=== PATIENT | male | born 1940 | race Caucasian/White ===

== ENCOUNTER 2018-04-10 11:02 | Day surgery (SDC) | payer OTHER, SELFPAY ==
--- NOTE | 2018-04-10 06:41 | COLE_ITS ---
Date of service: 04/10/18 Time of Service: 12:09 Colonoscopy Report Date of procedure: 04/10/18 Pre-op diagnosis general: Hx of polyps Post-op diagnosis procedure note: other (Colorectal Polyps/ Diverticulosis) Procedure: Colonoscopy with polypectomy by cold snare and cold forceps Surgeon: Aleta Null Anesthesia proc note operative: MAC (Chance Holden,PHOTOCOMPOSING MACHINE OPERATOR/ ASA 2) Estimated blood loss (mL): 5 Pathology: other (Ascending colon polyps x3, rectal polyp x1) Complications: None Disposition: same day Indications: Mr. Mai is a pleasant 77 year old male who was seen in the office for a screening Colonoscopy. His last Colonoscopy was in 2012 and he had a serrated polyp removed. Risks, benefits and complications have been reviewed. Complications include but are not limited to bleeding, pain, perforation, missed small lesion/polyp, sore throat, aspiration and adverse reaction to the medications. Questions were entertained and answered to their satisfaction and they wished to proceed. No guarantees were given or implied. Prep: Miralax/Dulcolax Procedure Start Time: 12:09 Procedure End Time: 12:38 Retraction Time: 20 minutes Findings: Multiple polyps and diverticulosis Procedure Description: After informed consent was obtained the patient was taken to the procedure room and placed in a left decubitous position. Monitors were applied and a time out was done. The patients name, date of , procedure, allergies to medications and metal in their body was reviewed. The patient was then sedated. Once sedated and comfortable a rectal exam was done. External exam was normal. Internal exam revealed a normal sphincter tone and no palpable masses. The prostate felt smooth. The scope was then introduced and retro-flexed. No internal hemorrhoids were identified. The scope was then advanced to the cecum without difficulty. The TI and appendiceal orifice were identified. The prep was adequate. The scope was then slowly retracted over 20 minutes back into the rectum. Polyps were removed in the ascending colon x3 and in the rectum x1. Diverticulosis was noted in the transverse, descending and sigmoid colon. The scope was removed and the patient was woken up and taken back to Same day surgery in stable condition. The patient tolerated the procedure well and there were no immediate complications. Follow up: The patient should follow up in 3-5 years unless they develop changes in bowel habits or other new gastrointestinal complaints.
--- NOTE | 2018-04-10 06:41 | W.PM.DSUDISC ---
Discharge Plan Disposition Patient Disposition: HOME Condition: Good Discharge Details Reason For Visit: Hx of polyps Attending Provider: Aleta Null Primary Care Provider: Delon Jean Home Meds and New Rx's Prescriptions: Continued multivitamin tablet 1 tab PO DAILY RF: 0 metoprolol succinate 100 mg tablet extended release 24 hr 100 mg PO DAILY Qty: 3 RF: 0 simvastatin 40 mg tablet 40 mg PO QPM RF: 0 metformin 500 MG tablet 1,000 mg PO BID RF: 0 allopurinol 100 MG tablet 200 mg PO DAILY RF: 0 lisinopril 10 MG tablet 20 mg PO DAILY RF: 0 warfarin [Coumadin] 1 MG tablet 1 mg PO DAILY RF: 0 loratadine 10 MG tablet 10 mg PO DAILY RF: 0 Discontinued bisacodyl [Dulcolax (bisacodyl)] 5 mg tablet,delayed release (DR/EC) 5 mg PO ONCE Qty: 4 RF: 0 polyethylene glycol 3350 17 gram/dose powder 255 g PO ONCE Qty: 255 RF: 0 Discharge Instructions Instructions: Colonoscopy (DC), Colorectal Polyps (DC), Diverticulosis (DC) Additional Instructions: Findings: multiple polyps diverticulosis Follow up: 3-5 years Please call if you develop: fevers >101.5 Nausea or Vomiting Abdominal pain that is not transient DAY SURGERY UNIT POST COLONOSCOPY INSTRUCTIONS 1. Because there will be medication in your system for the next 24 hours, you may feel a little sleepy. Your coordination will be affected. Therefore: a. Do not drive or operate dangerous equipment for 24 hours. b. Do not drink alcohol beverages for 24 hours (not even beer). c. Plan to go home and rest for the day. 2. Generally there are no restrictions on your activity after a day or so has gone by, but you may feel a bit fatigued for a few days. 3 After you arrive home you may have a light meal and return to a normal diet as you can tolerate it without feeling sick to your stomach. 4. After surgery, you may feel pain or discomfort. This should be only transient, but if it persists please contact your doctor. 5. If there are any questions regarding the findings of your procedure, please feel free to contact your doctor. 6. If you are unable to contact your doctor with a problem, contact the hospital at [phone]. 7. Continue all your regular medications unless directed otherwise. I understand the above instructions and have no questions. Signature of Patient or Responsible Adult Escort Date/Time Name of Responsible Adult Escort Signature of Nurse Date/Time Activity:: Activity as Tolerated Diet:: high fiber diet Discharge Orders Discharge Orders: Discharge Order (Routine); Ordered 04/10/18 Ordered By: Aleta Null DS: Diagnosis Discharge Diagnosis (1) S/P colonoscopy: Status: Acute (2) Colorectal polyps: Status: Acute
[2018-04-10 11:17] VITALS: BP 143/91; PULSE 79; RESP 16; TEMP 36.2; O2SAT 100
[2018-04-10 11:37] LABS: INR 1.2 (0.9-1.1)
[2018-04-10] MEDS: Lactated Ringers 1,000 ML 80 ML IV (11:49)
--- NOTE | 2018-04-10 12:23 | BOWEL_PTH ---
PATIENT: Mauro Tay LOC: GEO U#:[id number] AGE/SX: 77/M ROOM: RE04/10/[address]: Aleta Null MD : [id number] BED: DIS: 04/10/2018 SPEC #: [id number] RECD: 04/10/18 18:01 STATUS: FIDEL RE #: [id number] MOHAMUD: 04/10/18 12:[address]: Aleta Null DEPT: Surgical Specimen RECD BY: Dolly Jaime ENTERED: 04/10/18 18:02 SP TYPE: Bowel OTHR DR: Delon Jean Tissues: 1 - BIOPSY BOWEL 2 - BIOPSY BOWEL Procedures: GROSS AND MICRO LEVEL 4 IMMUNOPEROXIDASE STAIN Comments: [id number]
[2018-04-10 13:25] VITALS: BP 149/90; PULSE 58; RESP 18; TEMP 37.1; O2SAT 98
== END 2018-04-10 13:45 | disposition home or self-care (01) ==
LOC: SUR 11:03
PROVIDERS: PCP Internal Medicine; Visit Provider Surgery
PROC: 0DJD8ZZ Inspection of Lower Intestinal Tract, Via Natural or Artificial Opening Endoscopic (ICD-10-PCS; CPT 45378; principal; 2018-04-10 11:45)
DX: Z12.11 Encounter for screening for malignant neoplasm of colon (principal); D12.2 Benign neoplasm of ascending colon; D12.8 Benign neoplasm of rectum; Z86.010 Personal history of colon polyps; I10 Essential (primary) hypertension; K57.30 Diverticulosis of large intestine without perforation or abscess without bleeding; Z79.84 Long term (current) use of oral hypoglycemic drugs
CPT/HCPCS: 45385; 45380; 36415; 88305; 85610; 88361; J3010

== ENCOUNTER 2018-06-05 14:58 | Outpatient (REF) | payer OTHER, SELFPAY ==
[2018-06-05 20:51] LABS: HCT 39.3 % (40.0-50.0); Mean Corp. HGB Concentration 33.1 g/dL (32.0-36.0); Mean Corpuscular Hemoglobin 33.9 pg (27.0-33.0); Mean Corpuscular Volume 102.6 fL (80-95); Mean Platelet Volume 10.1 fL (8.0-11.0); Platelet Count 217 x1000/uL (130-400); RBC 3.83 m/cumm (4.50-6.00); RBC Distribution Width 13.4 % (11.8-14.1)
[2018-06-05 21:08] LABS: BUN 13 mg/dL (7-18); CREATININE 1.08 mg/dL (0.70-1.30); Calcium 9.3 mg/dL (8.5-10.1); Chloride 104 mmol/L (98-107); Glucose 119 mg/dL (70-100); Potassium 4.7 mmol/L (3.5-5.1); Sodium 142 mmol/L (136-145)
== END 2018-06-05 15:18 ==
LOC: NCHCN 14:58
PROVIDERS: PCP Internal Medicine; Visit Provider Internal Medicine
DX: E11.9 Type 2 diabetes mellitus without complications (principal); I48.91 Unspecified atrial fibrillation; Z79.01 Long term (current) use of anticoagulants
CPT/HCPCS: 80048; 85027

== ENCOUNTER 2018-06-16 06:25 | Day surgery (SDC) | payer OTHER, SELFPAY ==
--- NOTE | 2018-06-15 11:00 | W.PIPPEYE ---
History of Present Illness Chief Complaint: Progressive decreased vision, left eye Narrative: The patient is a 77-year-old male with history of progressive decreased vision in both eyes at both distance and near. He has significant difficulty with blurry vision while shooting, and when driving. He also has difficulty with near vision. On examination he was noted to have bilateral nuclear and cortical cataracts with posterior subcapsular cataract of the right eye as well. Visual acuity measured 20/40, but with significant glare disability. The option of cataract surgery was offered to the patient and he wished to proceed. NOTE: The Chief Complaint, HPI, Past Medical History, Past Surgical History, Family History, Social History, Medications, and complete Ophthalmic Exam with detailed Assessment and Plan have already been documented in the patient's outpatient ophthalmic record and are not covered again in detail here. [facility] Medical History Cortical cataract of right eye (Acute) Nuclear sclerotic cataract of right eye (Acute) Posterior subcapsular age-related cataract, right eye (Acute) Acne rosacea (Acute) Anticoagulation therapy continued upon discharge (Acute) Cardiomyopathy (Acute) Colon polyps (Acute) Epistaxis (Acute) Hyperlipidemia (Acute) Inguinal hernia (Acute) Paresthesias (Acute) Perennial allergic rhinitis (Acute) Skin lesion (Acute) Varicose veins of bilateral lower extremities with other complications (Acute) Venous stasis ulcer (Acute) Cataract (Chronic) Diverticulitis (Chronic) A-fib Adenomatous polyp CHF (congestive heart failure) Diabetes Gout Peripheral neuropathy Stasis dermatitis Surgical History Hx of arthroscopy of knee (Acute) Hx of inguinal hernia repair (Acute) History of colonoscopy (Chronic) Family History Other Lung cancer Social History Smoking/Tobacco Use Status: Former Tobacco Use Alcohol Intake: current Alcohol Intake frequency: 3 or more drinks per day Alcohol type: beer Drug use: Never Do you feel safe in your relationship?: Yes Meds Home Medications Medication Instructions Recorded Confirmed Type allopurinol 200 mg PO DAILY tab-cap NS 08/14/12 06/12/18 History lisinopril 20 mg PO DAILY tab-cap NS 08/14/12 06/12/18 History metformin 1,000 mg PO BID NS 08/14/12 06/12/18 History loratadine 10 mg PO DAILY 03/01/17 06/12/18 History warfarin [Coumadin] 1 mg PO DAILY tab-cap NS 10/10/17 06/12/18 History multivitamin tablet 1 tab PO DAILY 01/31/18 06/12/18 History simvastatin 40 mg tablet 40 mg PO QPM 01/31/18 06/12/18 History metoprolol succinate ER 100 mg 300 mg PO DAILY #3 tab-cap NS 04/11/18 06/12/18 History tablet,extended release 24 hr Allergies Allergy/AdvReac Type Severity Reaction Status Date / Time No Known Allergies Allergy Verified 06/12/18 13:52 Exam OCULAR EXAM:: Most recent ocular examination is significant for corrected visual acuity of 20/40 OD, 20/25 OS. Intraocular pressure is 14 OD, 15 OS. Slit-lamp examination is significant for pupils dilating only to 4 mm OU. 2+ nuclear with 2+ cortical cataract OU. 1-2+ posterior subcapsular cataract OD. Dilated funduscopic examination shows disc cupping of 0.3 OU with good color. The optic nerves have good perfusion and normal color. The retinal vasculature is normal without significant tortuosity or abnormality. The maculas are normal in appearance with normal contour and foveal reflex appropriate for age. The peripheral retina and vitreous are normal. BRIGHTNESS ACUITY TESTING (BAT):: Brightness acuity testing of the right eye off is 20/40. Low is 20/50. Medium is 20/60. High is 20/70. Assessment and Plan (1) Posterior subcapsular age-related cataract, right eye: Current visit: No Status: Acute Assessment: Visually significant cataract, right eye. Plan: Cataract extraction with intraocular lens implantation, right eye (2) Nuclear sclerotic cataract of right eye: Current visit: No Status: Acute Assessment: Visually significant cataract, right eye. Plan: Cataract extraction with intraocular lens implantation, right eye (3) Cortical cataract of right eye: Current visit: No Status: Acute Assessment: Visually significant cataract, right eye. Plan: Cataract extraction with intraocular lens implantation, right eye Note: NOTE:: The details of the planned surgery, including the risks, indications,limitations,expectations,outcome and possible complications were explained to the patient. The patient understands the complications including, but not limited to: infection, hemorrhage, posterior dislocation of the lens or nuclear fragments which may require the intervention of a vitreoretinal surgeon, possible loss of the eye, or from anesthetic complications. The patient has been made aware of the option of not having surgery, that vision following surgery may not be equal to that prior to surgery, and that the planned surgery may not achieve the intended results. Following this discussion, which the patient appeared to understand, the patient wishes to proceed with cataract surgery with lens implantation of the affected eye to improve and maximize vision.
--- NOTE | 2018-06-15 11:18 | W.PIPPEYE ---
History of Present Illness Chief Complaint: Progressive decreased vision, left eye Narrative: Narrative: The patient is a 77-year-old male with history of progressive decreased vision in both eyes at both distance and near. He has significant difficulty with blurry vision while shooting, and hen driving. He also has difficulty with near vision. On examination he was noted to have bilateral nuclear and cortical cataracts with posterior subcapsular cataract of the right eye as well. Visual acuity measures 20/30 in the left eye, but with significant glare disability. The option of cataract surgery was offered to the patient and he wished to proceed. The nondominant left eye will be performed first, even though the cataract is more advanced in the right eye. NOTE: The Chief Complaint, HPI, Past Medical History, Past Surgical History, Family History, Social History, Medications, and complete Ophthalmic Exam with detailed Assessment and Plan have already been documented in the patient's outpatient ophthalmic record and are not covered again in detail here. [facility] Medical History Nuclear sclerotic cataract of left eye (Acute) Cortical cataract of left eye (Acute) Acne rosacea (Acute) Anticoagulation therapy continued upon discharge (Acute) Cardiomyopathy (Acute) Colon polyps (Acute) Epistaxis (Acute) Hyperlipidemia (Acute) Inguinal hernia (Acute) Paresthesias (Acute) Perennial allergic rhinitis (Acute) Skin lesion (Acute) Varicose veins of bilateral lower extremities with other complications (Acute) Venous stasis ulcer (Acute) Cataract (Chronic) Diverticulitis (Chronic) A-fib Adenomatous polyp CHF (congestive heart failure) Diabetes Gout Peripheral neuropathy Stasis dermatitis Surgical History Hx of arthroscopy of knee (Acute) Hx of inguinal hernia repair (Acute) History of colonoscopy (Chronic) Family History Other Lung cancer Social History Smoking/Tobacco Use Status: Former Tobacco Use Alcohol Intake: current Alcohol Intake frequency: 3 or more drinks per day Alcohol type: beer Drug use: Never Do you feel safe in your relationship?: Yes Meds Home Medications Medication Instructions Recorded Confirmed Type allopurinol 200 mg PO DAILY tab-cap NS 08/14/12 06/12/18 History lisinopril 20 mg PO DAILY tab-cap NS 08/14/12 06/12/18 History metformin 1,000 mg PO BID NS 08/14/12 06/12/18 History loratadine 10 mg PO DAILY 03/01/17 06/12/18 History warfarin [Coumadin] 1 mg PO DAILY tab-cap NS 10/10/17 06/12/18 History multivitamin tablet 1 tab PO DAILY 01/31/18 06/12/18 History simvastatin 40 mg tablet 40 mg PO QPM 01/31/18 06/12/18 History metoprolol succinate ER 100 mg 300 mg PO DAILY #3 tab-cap NS 04/11/18 06/12/18 History tablet,extended release 24 hr Allergies Allergy/AdvReac Type Severity Reaction Status Date / Time No Known Allergies Allergy Verified 06/12/18 13:52 Exam OCULAR EXAM:: Most recent ocular examination is significant for corrected visual acuity of 20/40 OD, 20/25 OS. Intraocular pressure is 14 OD, 15 OS. Slit-lamp examination is significant for pupils dilating only to 4 mm OU. 2+ nuclear with 2+ cortical cataract OU. 1-2+ posterior subcapsular cataract OD. Dilated funduscopic examination shows disc cupping of 0.3 OU with good color. The optic nerves have good perfusion and normal color. The retinal vasculature is normal without significant tortuosity or abnormality. The maculas are normal in appearance with normal contour and foveal reflex appropriate for age. The peripheral retina and vitreous are normal. BRIGHTNESS ACUITY TESTING (BAT):: Brightness acuity testing of the left eye off is 20/30. Low is 20/40. Medium is 20/50. High is 20/80. Assessment and Plan (1) Cortical cataract of left eye: Current visit: No Status: Acute Assessment: Visually significant cataract, left eye. Plan: Cataract extraction with intraocular lens implantation, left eye (2) Nuclear sclerotic cataract of left eye: Current visit: No Status: Acute Assessment: Visually significant cataract, left eye. Plan: Cataract extraction with intraocular lens implantation, left eye Note: NOTE:: The details of the planned surgery, including the risks, indications,limitations,expectations,outcome and possible complications were explained to the patient. The patient understands the complications including, but not limited to: infection, hemorrhage, posterior dislocation of the lens or nuclear fragments which may require the intervention of a vitreoretinal surgeon, possible loss of the eye, or from anesthetic complications. The patient has been made aware of the option of not having surgery, that vision following surgery may not be equal to that prior to surgery, and that the planned surgery may not achieve the intended results. Following this discussion, which the patient appeared to understand, the patient wishes to proceed with cataract surgery with lens implantation of the affected eye to improve and maximize vision.
--- NOTE | 2018-06-15 11:56 | W.PM.DSUDISC ---
Discharge Plan Disposition Patient Disposition: HOME Condition: Stable Discharge Details Attending Provider: Vinny Nuñez Primary Care Provider: Delon Jean Home Meds and New Rx's Prescriptions: No Action multivitamin tablet 1 tab PO DAILY RF: 0 simvastatin 40 mg tablet 40 mg PO QPM RF: 0 metoprolol succinate 100 mg tablet extended release 24 hr 300 mg PO DAILY Qty: 3 RF: 0 metformin 500 MG tablet 1,000 mg PO BID RF: 0 allopurinol 100 MG tablet 200 mg PO DAILY RF: 0 lisinopril 10 MG tablet 20 mg PO DAILY RF: 0 warfarin [Coumadin] 1 MG tablet 1 mg PO DAILY RF: 0 loratadine 10 MG tablet 10 mg PO DAILY RF: 0 Discharge Instructions Stand Alone Forms: Post-op Topical Cataract, Brooke Butcher (DSU) Discharge Orders Discharge Orders: Discharge Order (Routine); Ordered 06/16/18 Ordered By: Vinny Nuñez DS: Diagnosis Discharge Diagnosis (1) Cortical cataract of left eye: Status: Resolved (2) Nuclear sclerotic cataract of left eye: Status: Resolved (3) Status post cataract extraction and insertion of intraocular lens of left eye: Status: Chronic
--- NOTE | 2018-06-15 11:59 | W.PM.OP ---
Date of service: 06/16/18 Time of Service: 08:06 Operative Note PRE-OP DIAGNOSIS: Cataract, left eye, with poorly dilating pupil POST-OP DIAGNOSIS: same PROCEDURE: Cataract extraction by phacoemulsification with intraocular lens implantation, left eye, with pupillary expansion device SURGEON: iVnny Nuñez ANESTHESIA: MAC and local (sub-tenon's anesthetic infiltration) ESTIMATED BLOOD LOSS: 0 PATHOLOGY: none sent COMPLICATIONS: None Patient was transported to: same day Patient's condition: stable Implants: Michael [employer] Michael / [employer] Tecnis [id number] Indications: Progressive decreased vision, left eye Procedure Description: CATARACT SURGERY OPERATIVE REPORT PREOPERATIVE DIAGNOSIS: 1. Nuclear/cortical cataract, left eye 2. Poorly dilating pupil, left eye POSTOPERATIVE DIAGNOSIS: Same OPERATION: 1. Cataract extraction using phacoemulsification with posterior chamber intraocular lens implant, left eye. 2. Pupillary dilation and iris stabilization using Malyugin Ring IOL; IOL [employer]/Track [employer] Field Coach/Model: Michael [employer] Michael / HA Tecnis [id number] IOL Power: + 20.0 diopters IOL Serial Number: [id number] Optic Diameter: 6.0 mm Haptic/Overall Diameter: 13.00 mm PHACO INFO: Dario [employer] Systemsurion Vision System with OZil and Active Fluidics Cumulative Dispersed Energy (CDE): 16.63 seconds SURGEON: Vinny Nuñez MD, ELENI ANESTHESIA: Monitored Anesthesia Care (MAC), with local sub-tenon's anesthetic infiltration COMPLICATIONS: None SPECIMENS: None INDICATIONS FOR PROCEDURE: The patient is a 77-year old male with history of progressive decreased vision in both eyes secondary to the development of bilateral nuclear and cortical cataract. He was significantly symptomatically he desired cataract surgery and attempt to improve and maximize his vision. PROCEDURE: The correct surgical eye was identified and marked as the left eye and the pupil was dilated in the preoperative area using mydriatics, cycloplegics, and NSAIDS (except in aspirin allergic patients). The dilated pupil size was 4.0 mm. Oral sedation was administered in the form of an Imprimis MKO Melt (midazolam 3mg/ketamine 25mg/ondansetron 2mg). The patient was brought to the operating room where cardiopulmonary monitoring was instituted and surgical time-out was performed, confirming the correct operative eye and IOL power. Topical anesthesia was administered and ophthalmic povidone-iodine 5% was instilled into the conjunctival fornices. Lidocaine gel was applied to the cornea and the stuart-ocular area was prepped with Betadine 10% solution and draped in the usual sterile fashion for intraocular surgery, including an aperture drape. A Tegaderm transparent film dressing was cut in half and used to cover the lashes and lid margins. Care was taken to sequester the lashes and lid margins under the Tegaderm dressing. A lid speculum was placed between the lids of the operative eye and the Ghanshyam-Christa operating microscope was maneuvered into position. Elida scissors were then used to make a conjunctival buttonhole approximately 6mm posterior to the limbus in the inferonasal quadrant. Blunt dissection was carried out to expose bare sclera, and a blunt-tipped sub-tenon?s anesthesia cannula was introduced and passed posteriorly along the globe where non-preserved plain lidocaine was injected into posterior sub-Tenon?s space. A sideport knife was used to make a paracentesis port superiorly/superiortemporally. The anterior chamber was filled with Healon GV. A 2.4mm keratome knife was used to create a half-thickness groove at the limbus and then to construct a three-plane near-clear corneal tunnel extending 2.0mm into clear cornea at the temporal position. A 7.0 mm Malyugin Ring was then inserted into the pupillary space and engaged with the Kuglen hook. A flap was raised on the anterior capsule and capsulorhexis forceps were used to complete a continuous curvilinear capsulorhexis of 5.0 mm. Balanced salt solution was then used to perform cortical cleaving hydrodissection and nuclear hydrodelineation until the lens could be freely rotated within the capsular bag. The lens nucleus was then disassembled and removed within the capsular bag and iris plane using phacoemulsification. Residual cortical material was removed using the 45-degree angled silicone I/A tip with 0.3mm port. The posterior capsule was carefully polished to remove as much residual lens epithelial cells as safely possible. The capsular bag was then inflated and the anterior chamber deepened with viscoelastic. The lens implant described above was inserted into the capsular bag using the HA Montezuma Injector. A Kuglen hook was used to dial the IOL into position. The Malyugin Ring was removed in the reverse order of its insertion. Residual viscoelastic was then removed first from posterior to the IOL, then from the anterior chamber using the I/A handpiece. The lens implant was noted to center nicely within the capsular bag. The incisions were stromally hydrated, and the anterior chamber was reformed using BSS. Then 0.4cc of moxifloxacin 1.5mg/ml were injected into the capsular bag and anterior chamber. The incisions were checked with a Weck spear and found to be secure. Several drops of ophthalmic povidone-iodine 5% were then applied to the eye followed by two drops of Imprimis combination gatifloxacin/dexamethasone solution. The drapes were removed and a clear plastic protective eye shield was placed over the eye. The patient was then returned to Same Day Surgery in stable condition.
[2018-06-16 06:41] VITALS: BP 151/101; PULSE 76; RESP 16; TEMP 36.5; O2SAT 100
[2018-06-16] MEDS: Tetracaine 0.5% 4 ML BTL OS ×4 (06:50→07:27)
[2018-06-16] MEDS: Tropicam./Phenyleph. (1/2.5%) 5 ML BTL OS ×3 (06:51→06:59)
[2018-06-16] MEDS: Povidone-Iodine Ophth 30 ML BTL (07:27)
[2018-06-16] MEDS: Lidocaine 2% Jelly 6 ML SYR (07:27)
[2018-06-16] MEDS: Lidocaine 1% Pres-Free 5 ML VIAL (07:32)
[2018-06-16] MEDS: Balanced Salt Soln.-PLUS 500 ML BAG (07:32)
[2018-06-16 08:30] VITALS: BP 126/81; PULSE 73; RESP 18; O2SAT 96
== END 2018-06-16 08:50 | disposition home or self-care (01) ==
PROVIDERS: PCP Internal Medicine; Visit Provider Ophthalmology
PROC: (CPT 66982; principal; 2018-06-16 07:30)
DX: H25.812 Combined forms of age-related cataract, left eye (principal); H57.09 Other anomalies of pupillary function; E11.9 Type 2 diabetes mellitus without complications; Z79.84 Long term (current) use of oral hypoglycemic drugs
CPT/HCPCS: 66982; V2632

== ENCOUNTER 2018-07-03 09:12 | Day surgery (SDC) | payer OTHER, SELFPAY ==
--- NOTE | 2018-07-02 19:04 | POEE_ITS ---
History of Present Illness Chief Complaint: Progressive decreased vision, right eye Narrative: The patient is a 77-year-old male with history of progressive decreased vision in both eyes at both distance and near. He notes significant difficulty with glare from headlights at night and sunlight during the day. He has particular difficulty driving and reading. He was noted to have bilateral nuclear and cortical cataracts with posterior subcapsular cataract of the right eye. He was significantly symptomatic that he desired cataract surgery which was performed OS on 06/16/2018. Postoperatively, he has regained uncorrected vision of 20/20 in the left eye. He now presents for cataract surgery in the right eye. NOTE: The Chief Complaint, HPI, Past Medical History, Past Surgical History, Family History, Social History, Medications, and complete Ophthalmic Exam with detailed Assessment and Plan have already been documented in the patient's outpatient ophthalmic record and are not covered again in detail here. PFSH Medical History Acne rosacea (Acute) Anticoagulation therapy continued upon discharge (Acute) Cardiomyopathy (Acute) Carpal tunnel syndrome on both sides (Acute) Colon polyps (Acute) Epistaxis (Acute) Hyperlipidemia (Acute) Inguinal hernia (Acute) Paresthesias (Acute) Perennial allergic rhinitis (Acute) Skin lesion (Acute) Varicose veins of bilateral lower extremities with other complications (Acute) Venous stasis ulcer (Acute) Cataract (Chronic) Diverticulitis (Chronic) Cortical cataract of left eye (Resolved) Nuclear sclerotic cataract of left eye (Resolved) A-fib Adenomatous polyp CHF (congestive heart failure) Diabetes Gout Peripheral neuropathy Stasis dermatitis Surgical History Status post cataract extraction and insertion of intraocular lens of left eye (Chronic 06/16/18) Hx of arthroscopy of knee (Acute) Hx of inguinal hernia repair (Acute) History of colonoscopy (Chronic) Family History Other Lung cancer Social History Smoking/Tobacco Use Status: Former Tobacco Use Alcohol Intake: current Alcohol Intake frequency: 3 or more drinks per day Alcohol type: beer Drug use: Never Do you feel safe in your relationship?: Yes Meds Home Medications Medication Instructions Recorded Confirmed Type allopurinol 200 mg PO DAILY tab-cap NS 08/14/12 06/16/18 History lisinopril 20 mg PO DAILY tab-cap NS 08/14/12 06/16/18 History metformin 1,000 mg PO BID NS 08/14/12 06/16/18 History loratadine 10 mg PO DAILY 03/01/17 06/16/18 History warfarin [Coumadin] 1 mg PO DAILY tab-cap NS 10/10/17 06/16/18 History multivitamin tablet 1 tab PO DAILY 01/31/18 06/16/18 History simvastatin 40 mg tablet 40 mg PO QPM 01/31/18 06/16/18 History metoprolol succinate ER 100 mg 300 mg PO DAILY #3 tab-cap NS 04/11/18 06/16/18 History tablet,extended release 24 hr Allergies Allergy/AdvReac Type Severity Reaction Status Date / Time No Known Allergies Allergy Verified 06/16/18 06:38 Exam OCULAR EXAM:: Most recent ocular examination is significant for corrected visual acuity of 20/40 OD, uncorrected vision of 20/20 OS. Intraocular pressure is 14 OS and OD. Extraocular motility is normal. Pupils equal, round, and reactive without afferent pupillary defect slit-lamp examination is significant for pupils dilating only to 4 mm OU. 2+ nuclear/cortical/posterior subcapsular cataract, right eye. In the left eye there is a well-positioned PCIOL with clear posterior capsule. Dilated funduscopic examination reveals disc cupping of 0.3 OU with good color. The optic nerves have good perfusion and normal color. The retinal vasculature is normal without significant tortuosity or abnormality. The maculas are normal in appearance with normal contour and foveal reflex appropriate for age. The peripheral retina and vitreous are nor mal. BRIGHTNESS ACUITY TESTING (BAT):: Brightness acuity testing of the right is 20/40. Low is 20/50. Medium is 20/50. high 20/70. Assessment and Plan (1) Cortical cataract of right eye: Current visit: No Status: Acute Assessment: Visually significant cataract, right eye. Plan: Cataract extraction with intraocular lens implantation, right eye (2) Nuclear sclerotic cataract of right eye: Current visit: No Status: Acute Assessment: Visually significant cataract, right eye. Plan: Cataract extraction with intraocular lens implantation, right eye (3) Posterior subcapsular age-related cataract, right eye: Current visit: No Status: Acute Assessment: Visually significant cataract, right eye. Plan: Cataract extraction with intraocular lens implantation, right eye Note: NOTE:: The details of the planned surgery, including the risks, indications,limitations,expectations,outcome and possible complications were explained to the patient. The patient understands the complications including, but not limited to: infection, hemorrhage, posterior dislocation of the lens or nuclear fragments which may require the intervention of a vitreoretinal surgeon, possible loss of the eye, or from anesthetic complications. The patient has been made aware of the option of not having surgery, that vision following surgery may not be equal to that prior to surgery, and that the planned surgery may not achieve the intended results. Following this discussion, which the patient appeared to understand, the patient wishes to proceed with cataract surgery with lens implantation of the affected eye to improve and maximize vision.
[2018-07-03 09:35] VITALS: BP 144/88; PULSE 76; RESP 16; TEMP 35.8; O2SAT 98
[2018-07-03] MEDS: Tetracaine 0.5% 4 ML BTL OD ×4 (09:44→11:00)
[2018-07-03] MEDS: Tropicam./Phenyleph. (1/2.5%) 5 ML BTL OD ×3 (09:45→09:53)
--- NOTE | 2018-07-03 10:46 | W.PM.DSUDISC ---
Discharge Plan Disposition Patient Disposition: HOME Condition: Stable Discharge Details Attending Provider: Vinny Nuñez Primary Care Provider: Delon Jean Home Meds and New Rx's Prescriptions: No Action multivitamin tablet 1 tab PO DAILY RF: 0 simvastatin 40 mg tablet 40 mg PO QPM RF: 0 metoprolol succinate 100 mg tablet extended release 24 hr 300 mg PO DAILY Qty: 3 RF: 0 metformin 500 MG tablet 1,000 mg PO BID RF: 0 allopurinol 100 MG tablet 200 mg PO DAILY RF: 0 lisinopril 10 MG tablet 20 mg PO DAILY RF: 0 warfarin [Coumadin] 1 MG tablet 1 mg PO DAILY RF: 0 loratadine 10 MG tablet 10 mg PO DAILY RF: 0 Discharge Instructions Stand Alone Forms: Post-op Topical Cataract, Brooke Butcher ([facility]U) Discharge Orders Discharge Orders: Discharge Order (Routine); Ordered 07/03/18 Ordered By: Vinny Nuñez DS: Diagnosis Discharge Diagnosis (1) Cortical cataract of right eye: Status: Resolved (2) Nuclear sclerotic cataract of right eye: Status: Resolved (3) Posterior subcapsular age-related cataract, right eye: Status: Resolved (4) Status post cataract extraction and insertion of intraocular lens of right eye: Status: Chronic
--- NOTE | 2018-07-03 10:48 | ROE_ITS ---
Date of service: 07/03/18 Time of Service: 11:20 Operative Note PRE-OP DIAGNOSIS: Cataract, right eye, with poorly dilating pupil POST-OP DIAGNOSIS: same PROCEDURE: 1. Cataract extraction by phacoemulsification with intraocular lens implantation, right eye, with pupillary expansion device SURGEON: Vinny Nuñez ANESTHESIA: MAC (with local sub-tenon's anesthetic injection) PATHOLOGY: none sent COMPLICATIONS: None Patient was transported to: same day Patient's condition: stable Implants: Michael [employer] Michael / [employer] Tecnis [id number] Indications: Progressive decreased vision due to cataract, right eye, with poorly dilating pupil Procedure Description: CATARACT SURGERY OPERATIVE REPORT PREOPERATIVE DIAGNOSIS: 1. Nuclear/cortical/posterior subcapsular cataract, right eye 2. Poorly dilating pupil, right eye POSTOPERATIVE DIAGNOSIS: Same OPERATION: 1. Cataract extraction using phacoemulsification with posterior chamber intraocular lens implant, right eye. 2. Pupillary dilation and iris stabilization using Malyugin Ring IOL: IOL Final Assembly Worker/Model: Michael & Michael / HA Tecnis [id number] IOL Power: + 20.50 diopters IOL Serial Number: [id number] Optic Diameter: 6.0mm Haptic/Overall Diameter: 13.0mm PHACO INFO: Dario Tastebudsurion Vision System with OZil and Active Fluidics Cumulative Dispersed Energy (CDE): 11.59 seconds SURGEON: Vinny Nuñez MD, ELENI ANESTHESIA: Monitored Anesthesia Care (MAC), with local sub-tenon's anesthetic infiltration COMPLICATIONS: None SPECIMENS: None INDICATIONS FOR PROCEDURE: Patient is a 77-year-old gentleman with history of diminished visual acuity in both eyes secondary to the development of bilateral nuclear cortical and posterior subcapsular cataract. He was significantly symptomatic that he desired cataract surgery which has been performed OS. He is doing well postoperatively. He now presents for cataract surgery in the right eye. PROCEDURE: The correct surgical eye was identified and marked as the right eye and the pupil was dilated in the preoperative area using mydriatics and cycloplegics. The dilated pupil size was 4.5 mm. Oral sedation was administered in the form of an Imprimis MKO Melt (midazolam 3mg/ketamine 25mg/ondansetron 2mg). The patient was brought to the operating room where cardiopulmonary monitoring was instituted and surgical time-out was performed, confirming the correct operative eye and IOL power. Topical anesthesia was administered and ophthalmic povidone-iodine 5% was ins tilled into the conjunctival fornices. Lidocaine gel was applied to the cornea and the stuart-ocular area was prepped with Betadine 10% solution and draped in the usual sterile fashion for intraocular surgery, including an aperture drape. A Tegaderm transparent film dressing was cut in half and used to cover the lashes and lid margins. Care was taken to sequester the lashes and lid margins under the Tegaderm dressing. A lid speculum was placed between the lids of the operative eye and the Ghanshyam-Christa operating microscope was maneuvered into position. Elida scissors were then used to make a conjunctival buttonhole approximately 6mm posterior to the limbus in the inferonasal quadrant. Blunt dissection was carried out to expose bare sclera, and a blunt-tipped sub-tenon?s anesthesia can nula was introduced and passed posteriorly along the globe where non-preserved plain lidocaine was injected into posterior sub-Tenon?s space. A sideport knife was used to make a paracentesis port inferiortemporally. The anterior chamber was filled with Healon GV. A 2.4mm keratome knife was used to create a half- thickness groove at the limbus and then to construct a three-plane near-clear corneal tunnel extending 2.0mm into clear cornea superiortemporally. A 7.0 mm Malyugin Ring was then inserted into the pupillary space and engaged with the Kuglen hook. A flap was raised on the anterior capsule and capsulorhexis forceps were used to complete a continuous curvilinear capsulorhexis of 5.0 mm. Balanced salt solution was then used to perform cortical cleaving hydrodissection and nuclear hydrodelineation until the lens could be freely rotated within the capsular bag. The lens nucleus was then disassembled and removed within the capsular bag and iris plane using phacoemulsification. Res idual cortical material was removed using the 45-degree angled silicone I/A tip with 0.3mm port. The posterior capsule was carefully polished to remove as much residual lens epithelial cells as safely possible. The capsular bag was then inflated and the anterior chamber deepened with viscoelastic. The lens implant described above was inserted into the capsular bag using the HA Elim Ira Injector. A Kuglen hook was used to dial the IOL into position. The Malyugin Ring was removed in the reverse order of its insertion. Residual viscoelastic was then removed first from posterior to the IOL, then from the anterior chamber using the I/A handpiece. The lens implant was noted to center nicely within the capsular bag. The incisions were stromally hydrated, and the anterior chamber was reformed using BSS. Then 0.4cc of moxifloxacin 1.5mg/ml were injected into the capsular bag and anterior chamber. The incisions were checked with a Weck spear and found to be secure. Several drops of ophthalmic povidone-iodine 5% were then applied to the eye followed by two drops of Imprimis combination gatifloxacin/dexamethasone solution. The drapes were removed and a clear plastic protective eye shield was placed over the eye. The patient was then returned to Same Day Surgery in stable condition.
[2018-07-03] MEDS: Balanced Salt Soln.-PLUS 500 ML BAG (10:56)
[2018-07-03] MEDS: Lidocaine 1% Pres-Free 5 ML VIAL (10:56)
[2018-07-03] MEDS: Lidocaine 2% Jelly 6 ML SYR (11:00)
[2018-07-03] MEDS: Povidone-Iodine Ophth 30 ML BTL (11:00)
[2018-07-03 11:50] VITALS: BP 115/76; PULSE 71; RESP 18; TEMP 37.1; O2SAT 95
== END 2018-07-03 12:03 | disposition home or self-care (01) ==
PROVIDERS: PCP Internal Medicine; Visit Provider Ophthalmology
PROC: (CPT 66982; principal; 2018-07-03 11:30)
DX: H25.811 Combined forms of age-related cataract, right eye (principal); H57.09 Other anomalies of pupillary function; Z98.42 Cataract extraction status, left eye; Z96.1 Presence of intraocular lens; E11.9 Type 2 diabetes mellitus without complications; Z79.84 Long term (current) use of oral hypoglycemic drugs
CPT/HCPCS: 66982; V2632

== ENCOUNTER 2018-07-26 11:21 | Day surgery (SDC) | payer OTHER, SELFPAY ==
[2018-07-26 11:35] VITALS: BP 140/96; PULSE 96; RESP 18; TEMP 36.6; O2SAT 97
--- NOTE | 2018-07-26 11:56 | HPE_ITS ---
Date of service: 07/26/18 Assessment and Plan (1) Carpal tunnel syndrome, left: Current visit: Yes Status: Chronic Left ECTR Details of surgery were discussed with patient as well as risks and pertinent anatomy. All questions were answered. History of Present Illness Chief Complaint: Left hand numbness and weakness Narrative: Mauro comes in today for a LEFT ECTR due to carpal tunnel syndrome on the left side. He has been having increasing symptoms in both of his hands, and despite peripheral neuropathy, he has had nerve conductions studies which showed delayed conduction over the median nerve distribution. He has had increased difficulty with dexterity especially with handling small objects and buttoning up his shirt. He elects now to proceed with a LEFT ECTR to hopefully improve his symptoms. Pertinent Surgical Information Mauro has a cardiac history significant for CHF, cardiomyopathy, and a-fib. He is followed by his PCP for this and treated medically. He denies chest pain or SOB with activites. Patient denies history of hypertension, CVA, MT, angina, asthma, COPD, renal or liver disorders, hepatitis, bleeding disorders, diabetes, immune or thyroid disorders. No complications from anesthesia. Review of Systems Constitutional Denies fever(s) ENT Denies dizziness and Denies sore throat Cardiovascular Denies chest pain, Denies palpitations and Denies dyspnea Respiratory Denies cough and Denies dyspnea Gastrointestinal Denies abdominal pain, Denies melena, Denies hematochezia, Denies diarrhea, Denies nausea and Denies vomiting Genitourinary Denies hematuria and Denies dysuria Neurologic Denies dizziness Endocrine Denies palpitations PENDING SALE TO [facility] Medical History Acne rosacea (Acute) Anticoagulation therapy continued upon discharge (Acute) Cardiomyopathy (Acute) Carpal tunnel syndrome on both sides (Acute) Colon polyps (Acute) Epistaxis (Acute) Hyperlipidemia (Acute) Inguinal hernia (Acute) Paresthesias (Acute) Perennial allergic rhinitis (Acute) Skin lesion (Acute) Varicose veins of bilateral lower extremities with other complications (Acute) Venous stasis ulcer (Acute) Cataract (Chronic) Diverticulitis (Chronic) Cortical cataract of left eye (Resolved) Nuclear sclerotic cataract of left eye (Resolved) A-fib Adenomatous polyp CHF (congestive heart failure) Diabetes Gout Peripheral neuropathy Stasis dermatitis Surgical History Status post cataract extraction and insertion of intraocular lens of right eye (Chronic 07/03/18) Status post cataract extraction and insertion of intraocular lens of left eye (Chronic 06/16/18) History of cataract surgery (Chronic) Hx of arthroscopy of knee (Acute) Hx of inguinal hernia repair (Acute) History of colonoscopy (Chronic) Family History Other Lung cancer Social History Smoking/Tobacco Use Status: Former Tobacco Use Quit Date: 07/12/90 Alcohol Intake: current Alcohol Intake frequency: 3 or more drinks per day Alcohol type: beer Drug use: Never Do you feel safe at home: Yes Do you feel safe in your relationship?: Yes Meds Home Medications Medication Instructions Recorded Confirmed Type allopurinol 200 mg PO DAILY tab-cap NS 08/14/12 07/26/18 History lisinopril 20 mg PO DAILY tab-cap NS 08/14/12 07/26/18 History metformin 1,000 mg PO BID NS 08/14/12 07/26/18 History loratadine 10 mg PO DAILY 03/01/17 07/26/18 History warfarin [Coumadin] 1 mg PO DAILY tab-cap NS 10/10/17 07/26/18 History multivitamin tablet 1 tab PO DAILY 01/31/18 07/26/18 History simvastatin 40 mg tablet 40 mg PO QPM 01/31/18 07/26/18 History metoprolol succinate ER 100 mg 300 mg PO DAILY #3 tab-cap NS 04/11/18 07/26/18 History tablet,extended release 24 hr Allergies Allergy/AdvReac Type Severity Reaction Status Date / Time No Known Allergies Allergy Verified 07/26/18 11:39 Exam [facility] Head: normocephalic and atraumatic General nose exam: no nasal discharge Eyes Conjunctivae: conjunctivae normal Sclera: sclerae normal Pupils: PERRL Resp Effort & Inspection: normal respiratory effort Auscultation: clear to auscultation bilaterally and no wheezes Cardio Rate: regular rate Rhythm: abnormal rhythm Heart Sounds: S2 normal and no murmurs GI Palpation: soft, no hepatosplenomegaly and nontender Auscultation: normal bowel sounds Results Last Vital Signs Temp 36.6 C 07/26/18 11:35 Pulse 96 H 07/26/18 11:35 Resp 18 07/26/18 11:35 BP 140/96 H 07/26/18 11:35 Pulse Ox 97 07/26/18 11:35
[2018-07-26] MEDS: Lactated Ringers 1,000 ML 80 ML IV (12:04)
[2018-07-26] MEDS: ceFAZolin 1 GM/50 ML BAG IVPB (13:00)
--- NOTE | 2018-07-26 13:36 | PDOC.DSDIS_ITS ---
Discharge Plan Disposition Patient Disposition: HOME Condition: Good Discharge Details Reason For Visit: L ECTR Attending Provider: Juve Major Primary Care Provider: Delon Jean Home Meds and New Rx's Prescriptions: New hydrocodone-acetaminophen 5-325 mg tablet 1 tab PO Q6H PRN (Reason: pain) Qty: 7 RF: 0 Continued multivitamin tablet 1 tab PO DAILY RF: 0 simvastatin 40 mg tablet 40 mg PO QPM RF: 0 metoprolol succinate 100 mg tablet extended release 24 hr 300 mg PO DAILY Qty: 3 RF: 0 metformin 500 MG tablet 1,000 mg PO BID RF: 0 allopurinol 100 MG tablet 200 mg PO DAILY RF: 0 lisinopril 10 MG tablet 20 mg PO DAILY RF: 0 warfarin [Coumadin] 1 MG tablet 1 mg PO DAILY RF: 0 loratadine 10 MG tablet 10 mg PO DAILY RF: 0 Discharge Instructions Additional Instructions: Elevate L hand above heart level as much as possible overnite tonite. Wiggle fingers L hand 10 times/hour when awake to prevent swelling. Remove splint and dressings after 48 hours and begin to move L wrist. Use L hand as much as your discomfort allows. After you remove dressings, may shower or bathe and get incision wet. Leave incision uncovered when it is dry and sealed. Your fingers L hand may stay numb for 24 hours due to nerve block I put in to decrease post-op pain. Take tylenol or ibuprofen for pain. Take hydrocodone for pain not relieved by tylenol or ibuprofen. Follow up with in 10-14 days. Stand Alone Forms: DSU Post op Instructions, Brooke Butcher ([facility]) Referrals: Juve Major MD [ [facility] STAFF PHYSICIAN] - (f/u in 10-14 days.) Equipment/Supplies: Splint Activity:: Activity as Tolerated Remove Dressings/Wound Care:: 48 hours Shower/Bathe:: 48 hours Diet:: As Tolerated Discharge Orders Discharge Orders: Discharge Order (Routine); Ordered 07/26/18 Ordered By: Juve Major DS: Diagnosis Discharge Diagnosis (1) Carpal tunnel syndrome, left: Status: Chronic
[2018-07-26 14:20] VITALS: BP 126/80; PULSE 75; RESP 16; TEMP 36.5; O2SAT 93
--- NOTE | 2018-07-27 11:59 | ROE_ITS ---
Date of Surgery: July 26, 2018 Preoperative Diagnosis: Carpal tunnel syndrome, left. Postoperative Diagnosis: Carpal tunnel syndrome, left. Procedure: Endoscopic carpal tunnel release, left. Anesthesia: IV regional Surgeon: Juve Major M.D. Indications: This is a 77-year-old white male with longstanding symptoms of carpal tunnel syndrome on the left. H e has reached a point where he cannot tolerate the numbness and pain on a daily basis. Carpal tunnel release was recommended to alleviate his symptoms and improve function in his left hand. The risks and complications of the procedure were explained to the patient in detail preoperatively. Description of the Operative Procedure: The patient was taken to the operating room on 07/26/18. He was placed supine on the operating table and IV regional anesthesia was administered to the left upper extremity. Once good anesthesia was ob tained, the left hand, wrist, and forearm were prepped and draped free in the usual sterile fashion. An incision was made in-line with the proximal flexion crease of the wrist beginning at the flexor c arpi radialis tendon and extending to the flexor carpi ulnaris tendon. Incision was carried down to the subcu veins; subcu veins were cauterized. A distally-based fascial flap was then raised to gain access to the carpal canal. A synovial reflector was then used to free up any attachments to the und ersurface of the volar carpal ligament. A series of obturators were then inserted in the carpal sharmaine l to make room for the endoscope. The Vannesa endoscope blade device was then inserted in the carpal ca nal and advanced until the distal edge of the volar carpal ligament was clearly visualized. Care was taken to position the endoscope against the hook of the hamate on the ulnar side of the carpal tunne l. When the distal edge of the volar carpal ligament was clearly visualized that the trigger was dep ressed, elevating the blade, the elevator blade was then brought out proximally through the incision, transecting the volar carpal ligament. The blade was depressed, the endoscope was placed back in th e carpal canal, and the median nerve was directly visualized falling into the gap created by transect ion of the volar carpal ligament. Endoscope was then removed from the canal. A subcu fasciotomy was performed proximal to the incision about 2 inches using Littler scissors. A median nerve block was performed with 0.5% Marcaine with epinephrine solution and the wound margins were infiltrated with 0. 5% Marcaine with epinephrine solution for postoperative analgesia. The wound was irrigated with sali ne solution and the skin edges were approximated with two horizontal mattress sutures of 4-0 nylon marinelli ture material. The wound was dressed with Xeroform gauze, sterile gauze 4x4s, wrapped with a Kerlix bandage and wrap ped with a 3-inch CHANEL bandage. A commercial cock-up wrist splint was applied over the dressings. Th e patient's IV regional anesthesia was reversed without complications. He was discharged to the [facility] very Room in good condition. The patient was later discharged home from Day Surgery Unit when fully recovered from his IV regional anesthesia. He was given instructions to elevate his left hand above heart level as much as possibl e overnight tonight. He was encouraged to wiggle his fingers 10x an hour when awake to prevent stiff ness and swelling. He is advised that his fingers may stay numb on the left for up to 24 hours due t o the nerve block I put in. After 48 hours he is to remove his splint and dressings and start to mov e his left wrist. He may use his left hand as much as discomfort allows. After 48 hours he may show er and get his incision wet. He can leave the incision uncovered when it's dry and sealed. He shoul d take Tylenol or ibuprofen for pain, and he's given a prescription for breakthrough pain of hydrocod one/APAP 5/325, one tablet every 6 hours as needed. He is to follow up with Dr. Major in 10-14 days .
== END 2018-07-26 14:45 | disposition home or self-care (01) ==
PROVIDERS: PCP Internal Medicine; Visit Provider Orthopaedic Surgery
PROC: 01N54ZZ Release Median Nerve, Percutaneous Endoscopic Approach (ICD-10-PCS; CPT 29848; principal; 2018-07-26 13:00)
DX: G56.02 Carpal tunnel syndrome, left upper limb (principal)
CPT/HCPCS: 29848; NC; J0690; J2250; L3908

== ENCOUNTER 2018-10-12 13:21 | Outpatient (REF) | payer OTHER, SELFPAY ==
[2018-10-12 21:49] LABS: Uric Acid 4.8 mg/dL (3.5-7.2)
== END 2018-10-12 13:41 ==
LOC: NCHCN 13:21
PROVIDERS: PCP Internal Medicine; Visit Provider Internal Medicine
DX: L97.509 Non-pressure chronic ulcer of other part of unspecified foot with unspecified severity (principal)
CPT/HCPCS: 84550

== ENCOUNTER 2018-10-23 16:32 | Outpatient (CLI) | payer OTHER, SELFPAY ==
--- NOTE | 2018-10-23 15:20 | DI.RAD_ITS ---
SYMPTOMS/DIAGNOSIS: ULCER OF FOOT, LATERAL ASPECT MID BY BASE OF 5TH METATARSAL X 10 DAYS, L97.509, RIGHT FOOT PAIN, M79.671 RIGHT FOOT: Three views were obtained. The patient reportedly has a foot ulcer. There are degenerative changes of the joints of the foot, particularly involving the mid foot, but also the IP joints. There is a well-demarcated lucent lesion of the base of the 5th metatarsal. No previous films available for comparison. This could represent a degenerative cyst, but if clinically appropriate, the possibility of an erosive process could not be excluded. No other significant focal bony abnormality seen. CONCLUSION: Question lytic lesion, base of 5th metatarsal; please correlate regarding the site of the patient's ulceration and if there is a suspicion of osteomyelitis, additional evaluation with MRI would be recommended.
== END 2018-10-23 16:52 ==
PROVIDERS: PCP Internal Medicine; Visit Provider Nurse Practitioner Family
DX: L97.509 Non-pressure chronic ulcer of other part of unspecified foot with unspecified severity (principal)
CPT/HCPCS: 73630

== ENCOUNTER 2018-10-26 00:15 | Outpatient (CLI) | payer OTHER, SELFPAY ==
[2018-10-26] MEDS: Normal Saline Flush 10 ML SYR IVP (11:29)
[2018-10-26] MEDS: Gadoterate meglumine 20 ML VIAL IVP (11:30)
--- NOTE | 2018-10-26 11:54 | DI.MRI_ITS ---
SYMPTOM/DIAGNOSIS: FOOT PAIN, RT M79.671 MRI RIGHT FOOT: 10/26 MRI examination of the foot was performed according to the usual protocol with additional pre and post contrast. Multiplanar T1 FS images. The patient denies a foot ulceration or focal point tenderness at this time. Imaging of the mid foot and fore foot shows no gross focal bony defect. There is question of minimally abnormal signal in the base of the 5th metatarsal which is a nonspecific finding and may be artifactual. There is question again of minimal enhancement at the base of the 5th metatarsal. No osteolytic lesion seen. The remainder of the bones appear normal. No tenderness or ligamentous abnormality identified in the mid foot or forefoot. Question minimal signal changes and minimal enhancement in the base of the 5th metatarsal. CONCLUSION: Minimal signal changes and enhancement of the base of the 5th metatarsal. The pattern would be most consistent with a mild stress reaction. No gross evidence of osteomyelitis. Very early osteomyelitis not entirely excluded. Appropriate clinical follow up recommended.
== END 2018-10-26 00:35 ==
PROVIDERS: PCP Internal Medicine; Visit Provider Nurse Practitioner Family
DX: M79.671 Pain in right foot (principal); R93.7 Abnormal findings on diagnostic imaging of other parts of musculoskeletal system
CPT/HCPCS: 73720

== ENCOUNTER 2018-10-27 17:14 | Inpatient (IN) | payer OTHER, SELFPAY ==
[2018-10-27 17:26] VITALS: BP 104/55; PULSE 79; RESP 16; TEMP 36.7; O2SAT 99
--- NOTE | 2018-10-27 17:32 | W.ED.GENAD ---
Discharge Plan Disposition Patient Disposition: [facility] INPATIENT Condition: Stable Discharge Details Chief Complaint: GenMedical Clinical Impression: Diabetic infection of right foot Primary Care Provider: Delon Jean ED Provider: Juve Puga Home Meds and New Rx's Prescriptions: No Action multivitamin tablet 1 tab PO DAILY RF: 0 simvastatin 40 mg tablet 40 mg PO QPM RF: 0 metoprolol succinate 100 mg tablet extended release 24 hr 300 mg PO DAILY Qty: 3 RF: 0 metformin 500 MG tablet 1,000 mg PO BID RF: 0 allopurinol 100 MG tablet 200 mg PO DAILY RF: 0 lisinopril 10 MG tablet 20 mg PO DAILY RF: 0 warfarin [Coumadin] 1 MG tablet 1 mg PO DAILY RF: 0 gabapentin 300 mg Capsule 300 mg PO DAILY RF: 0 celecoxib [Celebrex] 100 mg Capsule 100 mg PO DAILY RF: 0 loratadine 10 MG tablet 10 mg PO DAILY RF: 0 Medical Decision Making 77-year-old male diabetic who is been seen Dr. Jean for right foot ulceration that became malodorous, erythematous, with drainage this afternoon. An MRI had been obtained on October 26 with question very early osteomyelitis. This was in follow-up to an x-ray from the which showed question of a lytic lesion. Today the patient is afebrile but he has a draining right lateral midfoot ulceration overlying proximal fifth metatarsal. It is malodorous and there is overlying erythema but the family states is new today. His lactic acid is elevated at 3.4, white blood cell count of 16. His slight anion gap of 12. Fluids initiated, blood and wound cultures obtained. Patient giving a loading dose of vancomycin and referred for x-ray. XR: There is a small region of osseous irregularity in at the base of the fifth metatarsal bone in the region of the soft tissue ulcer. Findings concerning for early osteomyelitis in this region With his elevated inflammatory markers and progressive diabetic foot infection, patient to be admitted. Case discussed with Dr. Galvan Lab Data Lab results reviewed: Yes I reviewed the patient's lab results. Laboratory Results - last 24 hr 10/27/18 10/27/18 10/27/18 17:45 17:45 17:45 WBC 16.89 H RBC 3.77 L Hgb 12.7 L Hct 38.6 L MCV 102.4 H MCH 33.7 H MCHC 32.9 RDW 13.1 Plt Count 262 MPV 9.7 PT 14.7 H INR 1.5 H Sodium 137 Potassium 4.0 Chloride 99 Carbon Dioxide 25.7 Anion Gap 12.3 H BUN 23 H Creatinine 1.25 Estimated GFR/1.73 m2 56.01 Glucose 158 H Lactate Calcium 9.4 Magnesium 1.6 L Total Bilirubin 1.3 H AST 16 ALT 17 Alkaline Phosphatase 51 Total Protein 7.8 Albumin 2.9 L 10/27/18 17:45 WBC RBC Hgb Hct MCV MCH MCHC RDW Plt Count MPV PT INR Sodium Potassium Chloride Carbon Dioxide Anion Gap BUN Creatinine Estimated GFR/1.73 m2 Glucose Lactate 3.4 H* Calcium Magnesium Total Bilirubin AST ALT Alkaline Phosphatase Total Protein Albumin HPI General Mode of arrival: ambulatory. Date/Time Provider Initiated Documentation: 10/27/18 17:29. Limitations to Documentation: no limitations. Information obtained by: patient. History of Present Illness 77 year old M presents to the emergency department with the chief complaint of Right foot swelling, erythema, drainage with ulceration. , described as moderate, Quality is described as dull, and is localized to the right and lower extremity. Patient reports no radiation. Patient started experiencing this day(s) and it has been constant. No relieving factors improve symptom(s), No exacerbating factors reported . Patient notes no other symptoms.. Patient did receive the following treatments prior to arrival, none Related Data Home Medications Medication Instructions Recorded Confirmed allopurinol 200 mg PO DAILY tab-cap NS 08/14/12 10/27/18 lisinopril 20 mg PO DAILY tab-cap NS 08/14/12 10/27/18 metformin 1,000 mg PO BID NS 08/14/12 10/27/18 loratadine 10 mg PO DAILY 03/01/17 10/27/18 warfarin [Coumadin] 1 mg PO DAILY tab-cap NS 10/10/17 10/27/18 multivitamin 1 tab PO DAILY 01/31/18 10/17/18 simvastatin 40 mg tablet 40 mg PO QPM 01/31/18 10/27/18 metoprolol succinate 100 mg 300 mg PO DAILY #3 tab-cap NS 04/11/18 10/27/18 tablet,extended release 24 hr celecoxib [Celebrex] 100 mg PO DAILY 10/27/18 10/27/18 gabapentin 300 mg PO DAILY 10/27/18 10/27/18 Allergies Allergy/AdvReac Type Severity Reaction Status Date / Time No Known Allergies Allergy Verified 10/17/18 10:45 General Stated Complaint: GenMedical LANIE: 3 Review of Systems Review of Systems Became malodorous today with redness. 6 systems reviewed and otherwise negative [facility] Medical History A-fib Acne rosacea (Acute) Adenomatous polyp Anticoagulation therapy continued upon discharge (Acute) Cardiomyopathy (Acute) Carpal tunnel syndrome on both sides (Acute) Cataract (Chronic) CHF (congestive heart failure) Colon polyps (Acute) Cortical cataract of left eye (Resolved) Diabetes Diverticulitis (Chronic) Epistaxis (Acute) Gout Hyperlipidemia (Acute) Inguinal hernia (Acute) Nuclear sclerotic cataract of left eye (Resolved) Paresthesias (Acute) Perennial allergic rhinitis (Acute) Peripheral neuropathy Skin lesion (Acute) Stasis dermatitis Varicose veins of bilateral lower extremities with other complications (Acute) Venous stasis ulcer (Acute) Surgical History History of cataract surgery (Chronic) History of colonoscopy (Chronic) Hx of arthroscopy of knee (Acute) Hx of inguinal hernia repair (Acute) Status post cataract extraction and insertion of intraocular lens of left eye (Chronic 06/16/18) Status post cataract extraction and insertion of intraocular lens of right eye (Chronic 07/03/18) Family History Other Lung cancer Social History Smoking/Tobacco Use Status: Former Tobacco Use Quit Date: 07/12/90 Alcohol Intake: current Alcohol Intake frequency: 3 or more drinks per day Alcohol type: beer Drug use: Never Do you feel safe at home: Yes Do you feel safe in your relationship?: Yes Exam Narrative Exam Narrative: GEN: awake, alert, oriented 3. Pleasant, well groomed, interactive. HEAD: Normocephalic, atraumatic ENT: Mucous membranes moist, oropharynx unremarkable, External ear exam unremarkable EYES: PERRL, EOMI NECK: Full ROM, no MAIDA, no menigismus CHEST/RESP: Nontender, clear to auscultation bilateral, no wheeze/rhonchi/rales CARDIOVASCULAR: Irregularly irregular, no murmur, rub torsten. 2+ Rad pulse bilateral ABDOMEN: Soft, nontender, no mass. +Bowel sounds EXT: Full ROM, right lower extremity with edema from the ankle through foot with overlying warmth and erythema. At the base of the right fifth metatarsal there is a malodorous ulceration with serosanguineous discharge. Does not probe to bone Neuro: Grossly normal neurologic exam, conversant, interactive. Psych: Speech fluent, thoughts congruent, affect normal Course Vital Signs Temperature 36.7 C 10/27/18 17:26 Pulse 79 10/27/18 17:26 Respiratory Rate 16 10/27/18 17:26 Blood Pressure 104/55 L 10/27/18 17:26 Pulse Oximetry 99 10/27/18 17:26 Temperature 36.7 C 10/27/18 17:26 Temperature Source Temporal Artery Scan 10/27/18 17:26 Pulse 79 10/27/18 17:26 Respiratory Rate 16 10/27/18 17:26 Blood Pressure 104/55 L 10/27/18 17:26 Blood Pressure Position Sitting 10/27/18 17:26 Pulse Oximetry 99 10/27/18 17:26 Oxygen Delivery Method Room Air 10/27/18 17:26 Oxygen Flow Rate 0 10/27/18 17:26
[2018-10-27 17:40] VITALS: RESP 14
--- NOTE | 2018-10-27 17:42 | NUR.NOTE ---
Nursing Note: PT reports drainage from previous foot wound. Pt reports that he is currently being treated by his PCP however his symptoms are not improving. Pt reports seeing more drainage from wound than normal, wound is foul smelling.
--- NOTE | 2018-10-27 17:45 | DI.RAD_ITS ---
SYMPTOM/DIAGNOSIS: WORSENING RT 5TH ULCER, ODOR RIGHT FOOT: Three is soft tissue gas adjacent to the base of the fifth metatarsal where the patient reportedly has a foot ulcer. The underlying bone shows question of focal demineralization which was not present on the previous examination of 10/23. The findings could represent early osteomyelitis. I would note that foot MRI obtained on 10/26 did not show convincing evidence of osteomyelitis. Appropriate follow up studies requested.
[2018-10-27 18:10] LABS: Abs Immature Grans 0.03 k/cumm (0.0-0.09); Absolute Basophil Count 0.02 k/cumm (0.0-0.2); Absolute Monocyte Count 2.06 k/cumm (0.11-0.7); Absolute Neutrophil Count 12.94 k/cumm (1.2-6.7); Basophils % 0.1; Eosinophils % 0.5; HCT 38.6 % (40.0-50.0); HGB 12.7 g/dL (13.5-17.5); Immature Grans % 0.2; Lactate 3.4 mmol/L (0.6-1.4); Lymphocytes % 10.4; Mean Corp. HGB Concentration 32.9 g/dL (32.0-36.0); Mean Corpuscular Hemoglobin 33.7 pg (27.0-33.0); Mean Corpuscular Volume 102.4 fL (80-95); Mean Platelet Volume 9.7 fL (8.0-11.0); Monocytes % 12.2; Neutrophils % 76.6; Platelet Count 262 x1000/uL (130-400); RBC 3.77 m/cumm (4.50-6.00); RBC Distribution Width 13.1 % (11.8-14.1); White Blood Cell Count 16.89 k/cumm (4.4-10.8)
[2018-10-27 18:13] LABS: Absolute Eosinophil Count 0.08 k/cumm (0.0-0.7); Absolute Lymphocyte Count 1.76 k/cumm (1.2-3.4)
[2018-10-27 18:15] LABS: INR 1.5 (0.9-1.1); Prothrombin Time 14.7 sec (9.3-11.0)
[2018-10-27 18:29] LABS: ALT 17 U/L (12-78); AST 16 U/L (15-37); Albumin 2.9 g/dL (3.4-5.0); Alkaline Phosphatase 51 U/L (46-116); Anion Gap 12.3 mmol/L (3-11); BUN 23 mg/dL (7-18); Bilirubin, Total 1.3 mg/dL (0.2-1.0); CO2 25.7 mmol/L (21.0-32.0); CREATININE 1.25 mg/dL (0.70-1.30); Calcium 9.4 mg/dL (8.5-10.1); Chloride 99 mmol/L (98-107); Estimated GFR 56.01 (mL/min/1.73m2); Glucose 158 mg/dL (70-100); Magnesium 1.6 mg/dL (1.8-2.4); Sodium 137 mmol/L (136-145); Total Protein 7.8 g/dL (6.4-8.2)
[2018-10-27] MEDS: VANCOMYCIN 1,500 MG in Normal Saline 250 ML 166.6666 MG IVPB (18:31)
--- NOTE | 2018-10-27 18:36 | DI.VRAD_ITS ---
EXAM: XR Right Foot Complete EXAM DATE/TIME: 10/27/2018 5:47 PM CLINICAL HISTORY: 77 years old, male; Other: Worsening RT 5th ulcer, smell TECHNIQUE: Imaging protocol: XR Right foot. Views: 3 or more views. COMPARISON: CR XR foot RT complete 10/23/2018 3:17 PM FINDINGS: Bones/joints: There is a small region of osseous irregularity in at the base of the fifth metatarsal bone in the region of the soft tissue ulcer. Findings concerning for early osteomyelitis in this region. There is no acute fracture or dislocation. Soft tissues: Normal. IMPRESSION: Findings concerning for early osteomyelitis at the base of the fifth metatarsal bone. No acute fracture. Dictated and Authenticated by: Shanta Calvillo MD. Ordering:GLEN An MD
[2018-10-27 18:38] LABS: Diff Comment Diff Reviewed
[2018-10-27 18:39] LABS: Macrocytosis 1+
[2018-10-27] MEDS: Normal Saline 1,000 ML 150 ML IV (18:40)
[2018-10-27 18:42] VITALS: BP 119/85; PULSE 81; RESP 16; O2SAT 94
--- NOTE | 2018-10-27 19:00 | HPE_ITS ---
Date of service: 10/27/18 Time of Service: 19:00 Assessment and Plan (1) Foot ulcer: Current visit: Yes Status: Acute Diabetic foot ulcerr, possible osteo. Will expand antibiotic coverage (Vanco and Zosyn) Spoke with Podiatry who will see patient in AM. History of Present Illness Chief Complaint: infected foot ulcer Narrative: 77 male diabetic, reports 10 days of ulcer right foot, reports beng treated with Prednisone(?). 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 her with one day of increasing pain and redness. In ER ulcer overlying 5th metatarsal noted. ER reports scant serosanguinous fluid obtained from wound, which did not probe to bone. Given dose of Vanco and admitted for further management. Review of Systems Review of Systems All systems reviewed & are unremarkable except as noted in HPI and below PFSH Medical History A-fib Acne rosacea (Acute) Adenomatous polyp Anticoagulation therapy continued upon discharge (Acute) Cardiomyopathy (Acute) Carpal tunnel syndrome on both sides (Acute) Cataract (Chronic) CHF (congestive heart failure) Colon polyps (Acute) Cortical cataract of left eye (Resolved) Diabetes Diverticulitis (Chronic) Epistaxis (Acute) Gout Hyperlipidemia (Acute) Inguinal hernia (Acute) Nuclear sclerotic cataract of left eye (Resolved) Paresthesias (Acute) Perennial allergic rhinitis (Acute) Peripheral neuropathy Skin lesion (Acute) Stasis dermatitis Varicose veins of bilateral lower extremities with other complications (Acute) Venous stasis ulcer (Acute) Surgical History History of cataract surgery (Chronic) History of colonoscopy (Chronic) Hx of arthroscopy of knee (Acute) Hx of inguinal hernia repair (Acute) Status post cataract extraction and insertion of intraocular lens of left eye (Chronic 06/16/18) Status post cataract extraction and insertion of intraocular lens of right eye ( Chronic 07/03/18) Family History Other Lung cancer Social History Smoking/Tobacco Use Status: Former Tobacco Use Quit Date: 07/12/90 Alcohol Intake: current Alcohol Intake frequency: 3 or more drinks per day Alcohol type: beer Drug use: Never Do you feel safe at home: Yes Do you feel safe in your relationship?: Yes Meds Home Medications Medication Instructions Recorded Confirmed Type allopurinol 200 mg PO DAILY tab-cap NS 08/14/12 10/27/18 History lisinopril 20 mg PO DAILY tab-cap NS 08/14/12 10/27/18 History metformin 1,000 mg PO BID NS 08/14/12 10/27/18 History loratadine 10 mg PO DAILY 03/01/17 10/27/18 History warfarin [Coumadin] 1 mg PO DAILY tab-cap NS 10/10/17 10/27/18 History multivitamin 1 tab PO DAILY 01/31/18 10/17/18 History simvastatin 40 mg tablet 40 mg PO QPM 01/31/18 10/27/18 History metoprolol succinate 100 mg 300 mg PO DAILY #3 tab-cap NS 04/11/18 10/27/18 History tablet,extended release 24 hr celecoxib [Celebrex] 100 mg PO DAILY 10/27/18 10/27/18 History gabapentin 300 mg PO DAILY 10/27/18 10/27/18 History Allergies Allergy/AdvReac Type Severity Reaction Status Date / Time No Known Allergies Allergy Verified 10/17/18 10:45 Exam Narrative Exam Narrative: afebrile, 119/85, 81, 16. HEENT unremarkable; neck supple; lungs clear; heart RRR w/o M/R/G; abdomen soft NT; extremities: 3-4cm ulcer overlying lateral aspect 5th metatarsal with cellulitis involving foot and extending to mid-pavon Results Labs : 10/27/18 17:45 10/27/18 17:45 Laboratory Results - last 24 hr 10/27/18 10/27/18 10/27/18 17:45 17:45 17:45 WBC 16.89 H RBC 3.77 L Hgb 12.7 L Hct 38.6 L MCV 102.4 H MCH 33.7 H MCHC 32.9 RDW 13.1 Plt Count 262 MPV 9.7 Immature Gran % 0.2 Neutrophils % 76.6 Lymphocytes % 10.4 Monocytes % 12.2 Eosinophils % 0.5 Basophils % 0.1 Absolute Neutrophils 12.94 H Absolute Lymphocytes 1.76 Absolute Monocytes 2.06 H Absolute Eosinophils 0.08 Absolute Basophils 0.02 Differential Comment Diff reviewed RBC Morphology See below Macrocytosis 1+ PT 14.7 H INR 1.5 H Sodium 137 Potassium 4.0 Chloride 99 Carbon Dioxide 25.7 Anion Gap 12.3 H BUN 23 H Creatinine 1.25 Estimated GFR/1.73 m2 56.01 Glucose 158 H Lactate Calcium 9.4 Magnesium 1.6 L Total Bilirubin 1.3 H AST 16 ALT 17 Alkaline Phosphatase 51 Total Protein 7.8 Albumin 2.9 L 10/27/18 17:45 WBC RBC Hgb Hct MCV MCH MCHC RDW Plt Count MPV Immature Gran % Neutrophils % Lymphocytes % Monocytes % Eosinophils % Basophils % Absolute Neutrophils Absolute Lymphocytes Absolute Monocytes Absolute Eosinophils Absolute Basophils Differential Comment RBC Morphology Macrocytosis PT INR Sodium Potassium Chloride Carbon Dioxide Anion Gap BUN Creatinine Estimated GFR/1.73 m2 Glucose Lactate 3.4 H* Calcium Magnesium Total Bilirubin AST ALT Alkaline Phosphatase Total Protein Albumin Last Vital Signs Temp 36.7 C 10/27/18 17:26 Pulse 81 10/27/18 18:42 Resp 16 10/27/18 18:42 BP 119/85 10/27/18 18:42 Pulse Ox 94 L 10/27/18 18:42
[2018-10-27 19:48] VITALS: BP 119/63; PULSE 78; RESP 189; TEMP 36.7; O2SAT 95
[2018-10-27 20:00] VITALS: BP 128/80; PULSE 82; RESP 16; TEMP 37.2; O2SAT 95
[2018-10-27] MEDS: metFORMIN 500 MG TAB 1000 MG PO (20:46)
[2018-10-27] MEDS: Simvastatin 40 MG TAB PO (20:46)
[2018-10-27] MEDS: PIPERACILLIN/TAZO 3.375 GM in Normal Saline 50 ML IVPB (21:51)
[2018-10-27] MEDS: Celecoxib 100 MG CAP PO (22:51)
[2018-10-27] MEDS: MAGNESIUM SULFATE 1 GM/100 ML BAG IVPB (22:51)
[2018-10-27 23:38] VITALS: BP 114/71; PULSE 96; RESP 19; TEMP 37.3; O2SAT 98
[2018-10-28] VITALS (13 sets, daily range): BP systolic 103–138; BP diastolic 64–94; PULSE 77–94; RESP 18–20; TEMP 35.9–38; O2SAT 96–99
[2018-10-28] MEDS: PIPERACILLIN/TAZO 3.375 GM in Normal Saline 50 ML IVPB ×4 (02:19→20:44)
[2018-10-28] MEDS: Acetaminophen 325 MG TAB 650 MG PO (03:58)
[2018-10-28] MEDS: VANCOMYCIN 1,500 MG in Normal Saline 250 ML 166.667 MG IVPB (06:34)
[2018-10-28 07:03] LABS: INR 1.4 (0.9-1.1); Prothrombin Time 14.5 sec (9.3-11.0)
[2018-10-28 07:47] LABS: Abs Immature Grans 0.03 k/cumm (0.0-0.09); HCT 34.3 % (40.0-50.0); HGB 11.5 g/dL (13.5-17.5); Mean Corp. HGB Concentration 33.5 g/dL (32.0-36.0); Mean Corpuscular Hemoglobin 34.5 pg (27.0-33.0); Mean Platelet Volume 9.9 fL (8.0-11.0); Platelet Count 220 x1000/uL (130-400); RBC 3.33 m/cumm (4.50-6.00); RBC Distribution Width 12.9 % (11.8-14.1); White Blood Cell Count 12.32 k/cumm (4.4-10.8)
[2018-10-28 07:52] LABS: Anion Gap 9.8 mmol/L (3-11); BUN 26 mg/dL (7-18); CO2 25.2 mmol/L (21.0-32.0); CREATININE 1.16 mg/dL (0.70-1.30); Calcium 8.3 mg/dL (8.5-10.1); Chloride 104 mmol/L (98-107); Glucose 182 mg/dL (70-100); Magnesium 1.7 mg/dL (1.8-2.4); Potassium 4.5 mmol/L (3.5-5.1); Sodium 139 mmol/L (136-145)
[2018-10-28] MEDS: Metoprolol CR 100 MG TABCR 300 MG PO (07:52)
[2018-10-28] MEDS: Lisinopril 10 MG TAB 20 MG PO (07:52)
[2018-10-28] MEDS: Allopurinol 100 MG TAB 200 MG PO (07:52)
[2018-10-28] MEDS: Loratidine 10 MG TAB PO (07:52)
[2018-10-28] MEDS: Celecoxib 100 MG CAP PO ×2 (07:52→19:29)
[2018-10-28] MEDS: Normal Saline Flush 10 ML SYR IVP ×3 (07:52→18:51)
[2018-10-28 07:53] LABS: C-Reactive Protein 14.38 mg/dL (0.0-0.3)
[2018-10-28 08:00] LABS: Lactate 1.2 mmol/L (0.6-1.4)
[2018-10-28 08:08] LABS: Absolute Eosinophil Count 0.12 k/cumm (0.0-0.7); Absolute Lymphocyte Count 0.86 k/cumm (1.2-3.4); Absolute Monocyte Count 1.11 k/cumm (0.11-0.7); Absolute Neutrophil Count 10.23 k/cumm (1.2-6.7); Diff Comment Manual Differential
[2018-10-28 08:09] LABS: Hypochromasia 1+; Macrocytosis 1+
[2018-10-28 08:10] LABS: Poikilocytes 1+
--- NOTE | 2018-10-28 08:26 | PDOC.CMIN ---
Care Management Initial Assess REASON FOR HOSPITALIZATION:: Diabetic Foot Ulcer PAST MEDICAL HISTORY/PAST SURGICAL HISTORY:: Medical: A-fib; Acne rosacea (Acute); Adenomatous polyp; Anticoagulation therapy continued upon discharge (Acute); Cardiomyopathy (Acute). Carpal tunnel syndrome on both sides (Acute); Cataract (Chronic); CHF (congestive heart failure); Colon polyps (Acute); Cortical cataract of left eye (Resolved); Diabetes; Diverticulitis (Chronic); Epistaxis (Acute); Gout; yperlipidemia (Acute); Inguinal hernia (Acute); Nuclear sclerotic cataract of left eye (Resolved); Paresthesias (Acute); Perennial allergic rhinitis (Acute). Peripheral neuropathy;Skin lesion (Acute); Stasis dermatitis; Varicose veins of bilateral lower extremities with other complications (Acute); Venous stasis ulcer (Acute). Surgical: History of cataract surgery (Chronic); History of colonoscopy (Chronic); Hx of arthroscopy of knee (Acute); Hx of inguinal hernia repair (Acute); Status post cataract extraction and insertion of intraocular lens of left eye (Chronic 06/16/18); Status post cataract extraction and insertion of intraocular lens of right eye (Chronic 07/03/18). PREVIOUS FUNCTIONAL STATUS/SOCIAL/FAMILY SUPPORTS:: Mauro lives with his , Paige Moody, at their home in [place]. He is independent at baseline. Still drives and manages his own chores. Paige Moody also drives and they work together to keep up with the house and yard. CURRENT FUNCTIONAL STATUS:: Sitting up in bed enjoying his breakfast. Relieved that Dr. White was able to take care of his foot this morning. Hopes he will be able to go home soon. ADVANCE DIRECTIVES:: On file. Paige Mai is named as agent. Kvng, his sons, are named as the alternates. Has patient been provided with information about the portal?: No Did the patient sign up for the portal?: No CODE STATUS:: Full Code INSURANCE COVERAGE / FINANCIAL ISSUES:: [facility] CURRENT HOME/COMMUNITY SERVICES/EQUIPMENT:: No services PRIMARY CARE PHYSICIAN:: [facility]: Dr. Jean POTENTIAL DISCHARGE NEEDS:: Follow up appointments with [facility] [employer] and PCP PATIENT/FAMILY EDUCATION NEEDS:: DISCHARGE INSTRUCTIONS ANTICIPATED BARRIERS TO DISCHARGE:: None identified TRANSPORTATION:: Paige Moody will transport by car PLAN:: Breeden will return home when medically cleared for discharge. No services needed at this time. Paige Moody will transport.
--- NOTE | 2018-10-28 08:38 | POCOE_ITS ---
Date of service: 10/28/18 Time of Service: 08:38 History of Present Illness Chief Complaint: Diabetic ulceration right foot with cellulitis Narrative: Patient is a 77-year-old male with [id number] diabetes and peripheral neuropathy who developed a blister at the base of the right fifth metatarsal approximately 10 days ago. Was initially evaluated by his PCP, radiographs were ordered and were equivocal and an MRI was performed on 10/27/2018 suspicious for the possibility of osteomyelitis base of the fifth metatarsal. He developed increasing redness pain in his right foot extending up into his leg and was seen at the emergency department late yesterday afternoon with Dr. Galvan admitted him and consulted myself for foot management. He is cur rently receiving vancomycin and Zosyn IV for broad coverage. He is seen at bedside, he is resting comfortably, he is awake, alert, pleasant and he does ask appropriate questions. [facility] Medical History A-fib Acne rosacea (Acute) Adenomatous polyp Anticoagulation therapy continued upon discharge (Acute) Cardiomyopathy (Acute) Carpal tunnel syndrome on both sides (Acute) Cataract (Chronic) CHF (congestive heart failure) Colon polyps (Acute) Cortical cataract of left eye (Resolved) Diabetes Diverticulitis (Chronic) Epistaxis (Acute) Gout Hyperlipidemia (Acute) Inguinal hernia (Acute) Nuclear sclerotic cataract of left eye (Resolved) Paresthesias (Acute) Perennial allergic rhinitis (Acute) Peripheral neuropathy Skin lesion (Acute) Stasis dermatitis Varicose veins of bilateral lower extremities with other complications (Acute) Venous stasis ulcer (Acute) Surgical History History of cataract surgery (Chronic) History of colonoscopy (Chronic) Hx of arthroscopy of knee (Acute) Hx of inguinal hernia repair (Acute) Status post cataract extraction and insertion of intraocular lens of left eye (Chronic 06/16/18) Status post cataract extraction and insertion of intraocular lens of right eye (Chronic 07/03/18) Family History Other Lung cancer Social History Smoking/Tobacco Use Status: Former Tobacco Use Quit Date: 07/12/90 Alcohol Intake: current Alcohol Intake frequency: 3 or more drinks per day Alcohol type: beer Drug use: Never Do you feel safe at home: Yes Do you feel safe in your relationship?: Yes Exam Narrative Exam Narrative: Vitals BP is 110/69, pulse 77, respiration 19, temp 36.1, O2 sat room air is 97%. WBCs are down to 12.32 from 16, RBCs 3.33 hemoglobin is 11.5 hematocrit 34.3, PT is 14.5 INR 1.4, CRP 14.38 Physical exam: DP and PT pulses are easily palpable at the ankles graded 2/4 bilaterally. Capillary fill time is under 3 seconds to all toes. No peripheral edema is noted in the left lower extremity. Trace peripheral edema noted in the right lower extremity consistent with infection. The right foot has a gangrenous area situated over the lateral and dorsal aspect of the fifth metatarsal base there is intense erythema with cellulitis extending above the ankle. Crepitance of the soft tissue is appreciated and pus is palpable under the skin. He does have moderate diabetic peripheral neuropathy affecting both lower extremities Foot radiographs were reviewed dated 10/24/2018 as well as the MRI dated 10/27/2018. I do not see gross destruction of the underlying bony structure, and the osteomyelitis is acute and likely surface based at this time. Impressions diabetic ulceration lateral plantar aspect right fifth metatarsal base with acute cellulitis and abscess Plan: At bedside, with a #10 scalpel and a pickup I incised the necrotic area overlying the base of the right fifth metatarsal and thick, foul smell greenish- brown pus was noted. Necrosis of the tissues at this level noted. Pus was expressed when I palpated the foot along its more proximal and dorsal component and squeeze downward, as such I made the decision he needs operative debridement. I did take a deep culture at this level for Gram stain and sensitivities. Patient understands that we are going to bring him into the operating room today, remove necrotic tissue. Irrigate the wound and try to stabilize this infective, destructive process. He does understand that multiple debridements may become necessary. All questions were answered in detail. Informed consent has been obtained. No promises made to the final outcome of surgery. Results Last Vital Signs Temp 36.1 C L 10/28/18 07:20 Pulse 77 10/28/18 07:20 Resp 19 10/28/18 07:20 BP 110/69 10/28/18 07:20 Pulse Ox 97 10/28/18 07:20 Labs : 10/28/18 06:08 10/28/18 06:08 Laboratory Results - last 24 hr 10/27/18 10/27/18 10/27/18 17:45 17:45 17:45 WBC 16.89 H RBC 3.77 L Hgb 12.7 L Hct 38.6 L MCV 102.4 H MCH 33.7 H MCHC 32.9 RDW 13.1 Plt Count 262 MPV 9.7 Immature Gran % 0.2 Neutrophils % 76.6 Lymphocytes % 10.4 Monocytes % 12.2 Eosinophils % 0.5 Basophils % 0.1 Absolute Neutrophils 12.94 H Absolute Lymphocytes 1.76 Absolute Monocytes 2.06 H Absolute Eosinophils 0.08 Absolute Basophils 0.02 Differential Comment Diff reviewed RBC Morphology See below Hypochromasia Poikilocytosis Macrocytosis 1+ PT 14.7 H INR 1.5 H Sodium 137 Potassium 4.0 Chloride 99 Carbon Dioxide 25.7 Anion Gap 12.3 H BUN 23 H Creatinine 1.25 Estimated GFR/1.73 m2 56.01 Glucose 158 H Lactate Calcium 9.4 Magnesium 1.6 L Total Bilirubin 1.3 H AST 16 ALT 17 Alkaline Phosphatase 51 C-Reactive Protein Total Protein 7.8 Albumin 2.9 L 10/27/18 10/28/18 10/28/18 17:45 06:08 06:08 WBC RBC Hgb Hct MCV MCH MCHC RDW Plt Count MPV Immature Gran % Neutrophils % Lymphocytes % Monocytes % Eosinophils % Basophils % Absolute Neutrophils Absolute Lymphocytes Absolute Monocytes Absolute Eosinophils Absolute Basophils Differential Comment RBC Morphology Hypochromasia Poikilocytosis Macrocytosis PT 14.5 H INR 1.4 H Sodium 139 Potassium 4.5 Chloride 104 Carbon Dioxide 25.2 Anion Gap 9.8 BUN 26 H Creatinine 1.16 Estimated GFR/1.73 m2 >= 60.00 Glucose 182 H Lactate 3.4 H* Calcium 8.3 L Magnesium 1.7 L Total Bilirubin AST ALT Alkaline Phosphatase C-Reactive Protein Total Protein Albumin 10/28/18 10/28/18 10/28/18 06:08 06:08 07:52 WBC 12.32 H RBC 3.33 L Hgb 11.5 L Hct 34.3 L MCV 103.0 H MCH 34.5 H MCHC 33.5 RDW 12.9 Plt Count 220 MPV 9.9 Immature Gran % 0.0 Neutrophils % 83.0 Lymphocytes % 7.0 Monocytes % 9.0 Eosinophils % 1.0 Basophils % 0.0 Absolute Neutrophils 10.23 H Absolute Lymphocytes 0.86 L Absolute Monocytes 1.11 H Absolute Eosinophils 0.12 Absolute Basophils 0.00 Differential Comment Manual differential RBC Morphology See below Hypochromasia 1+ Poikilocytosis 1+ Macrocytosis 1+ PT INR Sodium Potassium Chloride Carbon Dioxide Anion Gap BUN Creatinine Estimated GFR/1.73 m2 Glucose Lactate 1.2 Calcium Magnesium Total Bilirubin AST ALT Alkaline Phosphatase C-Reactive Protein 14.38 H Total Protein Albumin
[2018-10-28] MEDS: Lactated Ringers 1,000 ML 100 ML IV (09:19)
[2018-10-28] MEDS: Bupivacaine 0.5% Pres-Free 30 ML VIAL (09:43)
[2018-10-28] MEDS: Lidocaine 1% Pres-Free 5 ML VIAL (09:44)
--- NOTE | 2018-10-28 09:51 | PHARADMIT ---
Addendum entered by Ghazal Richard 10/29/18 11:34: Pharmacy Note Subjective feels good, foot red, caution Hx CHF-no IVF's Objective CIWA zero, BP 151/93, Afebrile, pain zero, Mag 1.5, WBC up 15.14, BG 306, INR 1.5 Micro foot culture from OR sample: Group B strep Assessment Zosyn/Vanco changed to Rocephin 2gram IV daily Mag 2gram IV x1 Glucose possibly elevated to some degree because Vanco was in [id number] decrease Will need bowel meds ordered although not using Vicodin no other med changes No weight today but MD ordered daily weights Plan will switch to oral Anbx soon, possible wound Vac placement Tuesday follow I/O, daily weights due to Hx of CHF...MD to obtain historical records restart Warfarin Tuesday Original Note: Admission Pharmacy Clinical Review DIABETIC FOOT ULCER (OR 10/28/18 w/) Code Status Full Code Current Weight 99.79 kg Renally Cleared and Narrow Therapeutic Index Meds CrCl~62ml/min QTc Value / Action Taken QTC 469-03/01/2017 BP Control, Fever BP 110/69 Afebrile now, Tmax 38 ~4am Pain 3/10 Electrolytes reviewed K+ 4.5 Mag 1.7 (Mag IV x1 last evening) DVT Prophylaxis Opiate Usage / Scheduled Bowel Regimen Ordered Vicodin post-op-no bowel meds yet Plt/SCr for Heparin / Enoxaparin Plt 220 SCr 1.16 INR for Warfarin INR 1.4 (Warfarin dc'd until Tuesday-watch for resume order, was held last evening) H/H stable, WBC/Bands H/H 11.5/34.3 WBC 12.32 Antibiotic appropriateness Vanco/Zosyn day#2 Cultures and Sensitivities foot and blood pending x 2 Surgical ABX d/c within 24 hr DM control / Insulin Dosing BG 182, Novolog Heart Failure (Check EF%) (CHANEL's, B-Block, Diuretics) Lisinopril, Toprol XL 300mg IV to PO Switch Home Meds Reviewed Home Meds Not Ordered Metformin held, MVI Comments diabetic peripheral neuropathy-NIDDM MRI doesn't indicate osteomyelitis vut does need surgical debridement Celebrex, Vicodin for pain
[2018-10-28] MEDS: Insulin Aspart 300 UNITS/3 ML PEN SC ×2 (12:02→16:39)
--- NOTE | 2018-10-28 16:21 | W.PM.PROGNOT ---
Date of Service Date of service: 10/28/18 Time of Service: 16:21 Assessment and Plan (1) Foot ulcer: Current visit: Yes Status: Acute Despite imaging, Podiatry reports findings in the OR not consistent with Osteo. Currently with growth of Normal skin quentin and GBS (no WBC on stain) from superficial culture. Plan on continuation of broad spectrum coverage in diabetic patient until culture results from the OR are available. Lactic Acid normalized and leukocytosis improved on current regimen. Trend CRP. - Current preliminary plan is for a prolonged oral antibiotic therapy - per discussion with podiatry (2) Atrial fibrillation: Current visit: Yes Status: Chronic Continue BB - Coumadin on hold post-op, with plans on resuming on Tuesday. (3) Gout: Current visit: Yes Status: Chronic Continue Allopurinol. (4) Dyslipidemia: Current visit: Yes Status: Acute On statin therapy. (5) DVT prophylaxis: Current visit: Yes Status: Acute Coumadin on hold. Plans for resumption in 2 days post-op. Initiate on SCDs. Subjective Interval history since last seen: 77 year old diabetic man, admitted on 10/27 from [facility] Emergency Department with a diagnosis of diabetic foot ulcer. Mr. Tay has a Past Medical History significant for DM with diabetic neuropathy, Afib on AC with Warfarin, Gout, Dyslipidemia, and Cataracts. There is also mention of CHF by history without evidence of ECHO by records. The patient presented to the ED with a malodorous and erythematous appearing right foot ulceration, with reported drainage at home. MRI imaging the day prior to his presentation showed potential early Osteomyelitis, and and repeat Xray at time of admission showed findings concerning for early Osteo at the base of the 5th Metatarsal. Labwork was significant for leukocytosis and elevated Lactate. The patient was initiated on broad spectrum coverage, and admitted for further evaluation and treatment of a diabetic foot infection. This morning Mr. Tay underwent a bedside I&D via Podiatry, and then underwent a debridement in the OR with cultures at every level. The diagnosis of Osteo was in question as operative findings were not suggestive of bone infection, but rather inflammatory changes above the bone. Current Wound culture is growing GBS and normal quentin, but without WBCs, and culture from the OR is still pending. He feels well and has no complaints, and remains afebrile. Exam Narrative Exam Narrative: General: Patient appears comfortable, AAOX3, NAD Neck: Supple CV: Regular, nontachycardic, S1S2, No rubs, murmurs, or gallops. Pulmonary: Clear to auscultation bilaterally, no crackles, wheezing, or rhonchi on limited anterior and lateral exam Abdomen: + Bowel Sounds, soft, nontender, nondistended Vascular: +1 b/l lower extremity edema. Skin: Right foot bandaged, with dressing appearing C/D/I. Psych: Normal mood and affect. Objective Objective Clinical Data: Abnormal lab results 10/27/18 10/27/18 10/27/18 Range/Units 17:45 17:45 17:45 WBC 16.89 H (4.4-10.8) k/cumm RBC 3.77 L (4.50-6.00) m/cumm Hgb 12.7 L (13.5-17.5) g/dL Hct 38.6 L (40.0-50.0) % MCV 102.4 H (80-95) fL MCH 33.7 H (27.0-33.0) pg Absolute Neutrophils 12.94 H (1.2-6.7) k/cumm Absolute Lymphocytes (1.2-3.4) k/cumm Absolute Monocytes 2.06 H (0.11-0.7) k/cumm PT 14.7 H (9.3-11.0) sec INR 1.5 H (0.9-1.1) Anion Gap 12.3 H (3-11) mmol/L BUN 23 H (7-18) mg/dL Glucose 158 H (70-100) mg/dL Lactate (0.6-1.4) mmol/L Calcium (8.5-10.1) mg/dL Magnesium 1.6 L (1.8-2.4) mg/dL Total Bilirubin 1.3 H (0.2-1.0) mg/dL C-Reactive Protein (0.0-0.3) mg/dL Albumin 2.9 L (3.4-5.0) g/dL 10/27/18 10/28/18 10/28/18 Range/Units 17:45 06:08 06:08 WBC (4.4-10.8) k/cumm RBC (4.50-6.00) m/cumm Hgb (13.5-17.5) g/dL Hct (40.0-50.0) % MCV (80-95) fL MCH (27.0-33.0) pg Absolute Neutrophils (1.2-6.7) k/cumm Absolute Lymphocytes (1.2-3.4) k/cumm Absolute Monocytes (0.11-0.7) k/cumm PT 14.5 H (9.3-11.0) sec INR 1.4 H (0.9-1.1) Anion Gap (3-11) mmol/L BUN 26 H (7-18) mg/dL Glucose 182 H (70-100) mg/dL Lactate 3.4 H* (0.6-1.4) mmol/L Calcium 8.3 L (8.5-10.1) mg/dL Magnesium 1.7 L (1.8-2.4) mg/dL Total Bilirubin (0.2-1.0) mg/dL C-Reactive Protein (0.0-0.3) mg/dL Albumin (3.4-5.0) g/dL 10/28/18 10/28/18 Range/Units 06:08 06:08 WBC 12.32 H (4.4-10.8) k/cumm RBC 3.33 L (4.50-6.00) m/cumm Hgb 11.5 L (13.5-17.5) g/dL Hct 34.3 L (40.0-50.0) % MCV 103.0 H (80-95) fL MCH 34.5 H (27.0-33.0) pg Absolute Neutrophils 10.23 H (1.2-6.7) k/cumm Absolute Lymphocytes 0.86 L (1.2-3.4) k/cumm Absolute Monocytes 1.11 H (0.11-0.7) k/cumm PT (9.3-11.0) sec INR (0.9-1.1) Anion Gap (3-11) mmol/L BUN (7-18) mg/dL Glucose (70-100) mg/dL Lactate (0.6-1.4) mmol/L Calcium (8.5-10.1) mg/dL Magnesium (1.8-2.4) mg/dL Total Bilirubin (0.2-1.0) mg/dL C-Reactive Protein 14.38 H (0.0-0.3) mg/dL Albumin (3.4-5.0) g/dL Vital Signs Temperature 35.9 C L 10/28/18 15:25 Temperature Source Tympanic 10/28/18 15:25 Pulse 81 10/28/18 15:25 Pulse Rhythm Regular 10/28/18 10:15 Respiratory Rate 20 10/28/18 15:25 Respiratory Effort Non-Labored 10/28/18 10:15 Respiratory Depth Normal 10/28/18 10:15 Respiratory Pattern Normal 10/28/18 10:15 Blood Pressure 113/64 10/28/18 15:25 Blood Pressure Position Sitting 10/27/18 17:26 Pulse Oximetry 98 10/28/18 15:25 Oxygen Delivery Method Room Air 10/28/18 15:25 Oxygen Flow Rate 0 10/28/18 15:25 Pain Level 0 10/28/18 12:45 Comment 10/28/18 10:15 Intake & Output 10/27/18 10/28/18 10/28/18 23:59 11:59 23:59 Intake Total 300 / 300 760 / 1260 500 / 1260 Output Total 350 / 650 300 / 650 Balance 300 / 300 410 / 610 200 / 610 Weight 99.79 kg Intake: IV 300 / 300 400 / 450 50 / 450 Oral 360 / 810 450 / 810 Output: Urine 350 / 650 300 / 650 Other: Urine Color Yellow Dark [place] Urine Appearance Clear Clear Urine Odor None Voiding Methods Urinal Urinal Laboratory Results WBC 12.32 k/cumm (4.4-10.8) H 10/28/18 06:08 RBC 3.33 m/cumm (4.50-6.00) L 10/28/18 06:08 Hgb 11.5 g/dL (13.5-17.5) L 10/28/18 06:08 Hct 34.3 % (40.0-50.0) L 10/28/18 06:08 MCV 103.0 fL (80-95) H 10/28/18 06:08 MCH 34.5 pg (27.0-33.0) H 10/28/18 06:08 MCHC 33.5 g/dL (32.0-36.0) 10/28/18 06:08 RDW 12.9 % (11.8-14.1) 10/28/18 06:08 Plt Count 220 x1000/uL (130-400) 10/28/18 06:08 MPV 9.9 fL (8.0-11.0) 10/28/18 06:08 Immature Gran % 0.0 10/28/18 06:08 83.0 10/28/18 06:08 7.0 10/28/18 06:08 9.0 10/28/18 06:08 1.0 10/28/18 06:08 0.0 10/28/18 06:08 Absolute Neutrophils 10.23 k/cumm (1.2-6.7) H 10/28/18 06:08 Absolute Lymphocytes 0.86 k/cumm (1.2-3.4) L 10/28/18 06:08 Absolute Monocytes 1.11 k/cumm (0.11-0.7) H 10/28/18 06:08 Absolute Eosinophils 0.12 k/cumm (0.0-0.7) 10/28/18 06:08 Absolute Basophils 0.00 k/cumm (0.0-0.2) 10/28/18 06:08 Manual differential 10/28/18 06:08 RBC Morphology See below 10/28/18 06:08 1+ 10/28/18 06:08 1+ 10/28/18 06:08 1+ 10/28/18 06:08 PT 14.5 sec (9.3-11.0) H 10/28/18 06:08 INR 1.4 (0.9-1.1) H 10/28/18 06:08 Sodium 139 mmol/L (136-145) 10/28/18 06:08 Potassium 4.5 mmol/L (3.5-5.1) 10/28/18 06:08 Chloride 104 mmol/L (98-107) 10/28/18 06:08 Carbon Dioxide 25.2 mmol/L (21.0-32.0) 10/28/18 06:08 9.8 mmol/L (3-11) 10/28/18 06:08 BUN 26 mg/dL (7-18) H 10/28/18 06:08 1.16 mg/dL (0.70-1.30) 10/28/18 06:08 >= 60.00 (mL/min/1.73m2) 10/28/18 06:08 Glucose 182 mg/dL (70-100) H 10/28/18 06:08 1.2 mmol/L (0.6-1.4) 10/28/18 07:52 Calcium 8.3 mg/dL (8.5-10.1) L 10/28/18 06:08 Magnesium 1.7 mg/dL (1.8-2.4) L 10/28/18 06:08 1.3 mg/dL (0.2-1.0) H 10/27/18 17:45 AST 16 U/L (15-37) 10/27/18 17:45 ALT 17 U/L (12-78) 10/27/18 17:45 51 U/L (46-116) 10/27/18 17:45 14.38 mg/dL (0.0-0.3) H 10/28/18 06:08 7.8 g/dL (6.4-8.2) 10/27/18 17:45 2.9 g/dL (3.4-5.0) L 10/27/18 17:45
[2018-10-28 18:38] LABS: Vancomycin, Trough 14.3 ug/mL (10.0-20.0)
[2018-10-28] MEDS: Simvastatin 40 MG TAB PO (19:29)
[2018-10-29] VITALS (7 sets, daily range): BP systolic 126–166; BP diastolic 77–93; PULSE 79–87; RESP 12–20; TEMP 36–38.2; O2SAT 96–99
[2018-10-29] MEDS: PIPERACILLIN/TAZO 3.375 GM in Normal Saline 50 ML IVPB ×2 (02:00→08:24)
[2018-10-29 07:06] LABS: Abs Immature Grans 0.04 k/cumm (0.0-0.09); Absolute Lymphocyte Count 0.55 k/cumm (1.2-3.4); Absolute Monocyte Count 1.24 k/cumm (0.11-0.7); Basophils % 0.1; Eosinophils % 0.1; HCT 34.5 % (40.0-50.0); HGB 11.4 g/dL (13.5-17.5); Immature Grans % 0.3; Lymphocytes % 3.6; Mean Corpuscular Hemoglobin 33.5 pg (27.0-33.0); Mean Corpuscular Volume 101.5 fL (80-95); Mean Platelet Volume 9.9 fL (8.0-11.0); Monocytes % 8.2; Neutrophils % 87.7; Platelet Count 257 x1000/uL (130-400); RBC Distribution Width 12.6 % (11.8-14.1); White Blood Cell Count 15.14 k/cumm (4.4-10.8)
[2018-10-29 07:09] LABS: Absolute Basophil Count 0.02 k/cumm (0.0-0.2); Absolute Eosinophil Count 0.02 k/cumm (0.0-0.7); Absolute Neutrophil Count 13.28 k/cumm (1.2-6.7)
[2018-10-29 07:15] LABS: INR 1.5 (0.9-1.1); Prothrombin Time 15.1 sec (9.3-11.0)
[2018-10-29 07:19] LABS: Anion Gap 11.2 mmol/L (3-11); BUN 31 mg/dL (7-18); CO2 23.8 mmol/L (21.0-32.0); CREATININE 1.16 mg/dL (0.70-1.30); Calcium 8.8 mg/dL (8.5-10.1); Chloride 104 mmol/L (98-107); Glucose 306 mg/dL (70-100); Magnesium 1.5 mg/dL (1.8-2.4); Potassium 4.6 mmol/L (3.5-5.1); Sodium 139 mmol/L (136-145)
[2018-10-29] MEDS: Metoprolol CR 100 MG TABCR 300 MG PO (07:39)
[2018-10-29] MEDS: Celecoxib 100 MG CAP PO ×2 (07:40→19:38)
[2018-10-29] MEDS: Allopurinol 100 MG TAB 200 MG PO (07:40)
[2018-10-29] MEDS: Normal Saline Flush 10 ML SYR IVP (07:40)
[2018-10-29] MEDS: Loratidine 10 MG TAB PO (07:40)
[2018-10-29] MEDS: Lisinopril 10 MG TAB 20 MG PO (07:40)
[2018-10-29] MEDS: Insulin Aspart 300 UNITS/3 ML PEN SC ×3 (08:34→16:42)
--- NOTE | 2018-10-29 08:52 | W.PM.PROGNOT ---
Date of Service Date of service: 10/29/18 Time of Service: 08:53 Subjective Patient reports: no new complaints and feels better Interval history since last seen: Mauro is seen at bedside resting comfortably. He indicates he is feeling much better this morning. Has no complaints of pain in his right foot at all. Exam Narrative Exam Narrative: 24 hours status post debridement necrotic diabetic ulcer lateral aspect fifth metatarsal base right foot Vitals BP is 151/93 pulse 79 respiration 18 temp 36.2 O2 sats 99% at room air. Morning labs show WBCs at 15.14 RBCs 3.4 hemoglobin 11.4 hematocrit 34.5 neutrophils of 13.28 PT is 15.1 INR 1.5 glucose 306 Vancomycin trough yesterday 14.3 Microbiology reports group B Streptococcus from yesterday's culture. Dressings are removed from his right foot. The erythema that was rather intense yesterday is much improved at this time. No peripheral edema is noted. Sequential compression inflation devices are currently being utilized both limbs. Minimal serous bloody dressing noted on the deeper layers of the dressing. These dressings were saturated with normal saline and removed without difficulty. The base of the wound appears viable without signs of necrosis. The wound margins dorsally and proximal plantarly are a little dusky in appearance but not frankly devitalized. The drain remains in place along the proximal dorsal aspect of the wound and this was removed. No active signs of purulence noted upon removal. Palpation proximal to distal fail to express any pus or fluid of concern. The wound was copiously irrigated with 60 cc of normal saline via a 60 cc syringe and an 18-gauge needle. Xeroform was inserted along the proximal dorsal tunnel region of the wound wound which measured 5.5 cm by approximately 4 cm with a tunnel extending about 1 to 1.5 cm proximal dorsal from the proximal edge of the wound. A normal saline wet-to-dry bulky dressing was then applied to the wound. We will continue this dressing every 6 hours. If the wound continues to improve, signs of infection continue to resolve, we will consider applying a wound VAC to enhance granulation tissue growth and wound contracture. Antibiotics can be targeted more specifically to the cultured organisms and I will discuss this with the hospitalist. Objective Objective Clinical Data: Abnormal lab results 10/29/18 10/29/18 10/29/18 Range/Units 06:10 06:10 06:10 WBC 15.14 H (4.4-10.8) k/cumm RBC 3.40 L (4.50-6.00) m/cumm Hgb 11.4 L (13.5-17.5) g/dL Hct 34.5 L (40.0-50.0) % MCV 101.5 H (80-95) fL MCH 33.5 H (27.0-33.0) pg Absolute Neutrophils 13.28 H (1.2-6.7) k/cumm Absolute Lymphocytes 0.55 L (1.2-3.4) k/cumm Absolute Monocytes 1.24 H (0.11-0.7) k/cumm PT 15.1 H (9.3-11.0) sec INR 1.5 H (0.9-1.1) Anion Gap 11.2 H (3-11) mmol/L BUN 31 H (7-18) mg/dL Glucose 306 H D (70-100) mg/dL Magnesium 1.5 L (1.8-2.4) mg/dL Vital Signs Temperature 36.2 C L 10/29/18 03:28 Temperature Source Tympanic 10/29/18 03:28 Pulse 79 10/29/18 03:28 Pulse Rhythm Regular 10/28/18 19:20 Respiratory Rate 18 10/29/18 03:28 Respiratory Effort Non-Labored 10/28/18 19:20 Respiratory Depth Normal 10/28/18 19:20 Respiratory Pattern Normal 10/28/18 19:20 Blood Pressure 151/93 H 10/29/18 03:28 Blood Pressure Position Sitting 10/27/18 17:26 Pulse Oximetry 99 10/29/18 03:28 Oxygen Delivery Method Room Air 10/29/18 03:28 Oxygen Flow Rate 0 10/29/18 03:28 Pain Level 0 10/29/18 03:28 Comment 10/28/18 10:15 Intake & Output 10/28/18 10/29/18 10/29/18 18:59 06:59 18:59 Intake Total 2160 / 3100 940 / 3100 Output Total 500 / 1075 575 / 1075 Balance 1659 Intake: IV 1350 / 1650 300 / 1650 Oral 810 / 1450 640 / 1450 Output: Urine 500 / 1075 575 / 1075 Other: Urine Color Dark [place] Yellow Urine Appearance Clear Clear Urine Odor None Voiding Methods Urinal Urinal Laboratory Results WBC 15.14 k/cumm (4.4-10.8) H 10/29/18 06:10 RBC 3.40 m/cumm (4.50-6.00) L 10/29/18 06:10 Hgb 11.4 g/dL (13.5-17.5) L 10/29/18 06:10 Hct 34.5 % (40.0-50.0) L 10/29/18 06:10 MCV 101.5 fL (80-95) H 10/29/18 06:10 MCH 33.5 pg (27.0-33.0) H 10/29/18 06:10 MCHC 33.0 g/dL (32.0-36.0) 10/29/18 06:10 RDW 12.6 % (11.8-14.1) 10/29/18 06:10 Plt Count 257 x1000/uL (130-400) 10/29/18 06:10 MPV 9.9 fL (8.0-11.0) 10/29/18 06:10 Immature Gran % 0.3 10/29/18 06:10 87.7 10/29/18 06:10 3.6 10/29/18 06:10 8.2 10/29/18 06:10 0.1 10/29/18 06:10 0.1 10/29/18 06:10 Absolute Neutrophils 13.28 k/cumm (1.2-6.7) H 10/29/18 06:10 Absolute Lymphocytes 0.55 k/cumm (1.2-3.4) L 10/29/18 06:10 Absolute Monocytes 1.24 k/cumm (0.11-0.7) H 10/29/18 06:10 Absolute Eosinophils 0.02 k/cumm (0.0-0.7) 10/29/18 06:10 Absolute Basophils 0.02 k/cumm (0.0-0.2) 10/29/18 06:10 Manual differential 10/28/18 06:08 RBC Morphology See below 10/28/18 06:08 1+ 10/28/18 06:08 1+ 10/28/18 06:08 1+ 10/28/18 06:08 PT 15.1 sec (9.3-11.0) H 10/29/18 06:10 INR 1.5 (0.9-1.1) H 10/29/18 06:10 Sodium 139 mmol/L (136-145) 10/29/18 06:10 Potassium 4.6 mmol/L (3.5-5.1) 10/29/18 06:10 Chloride 104 mmol/L (98-107) 10/29/18 06:10 Carbon Dioxide 23.8 mmol/L (21.0-32.0) 10/29/18 06:10 11.2 mmol/L (3-11) H 10/29/18 06:10 BUN 31 mg/dL (7-18) H 10/29/18 06:10 1.16 mg/dL (0.70-1.30) 10/29/18 06:10 >= 60.00 (mL/min/1.73m2) 10/29/18 06:10 Glucose 306 mg/dL (70-100) H D 10/29/18 06:10 1.2 mmol/L (0.6-1.4) 10/28/18 07:52 Calcium 8.8 mg/dL (8.5-10.1) 10/29/18 06:10 Magnesium 1.5 mg/dL (1.8-2.4) L 10/29/18 06:10 1.3 mg/dL (0.2-1.0) H 10/27/18 17:45 AST 16 U/L (15-37) 10/27/18 17:45 ALT 17 U/L (12-78) 10/27/18 17:45 51 U/L (46-116) 10/27/18 17:45 14.38 mg/dL (0.0-0.3) H 10/28/18 06:08 7.8 g/dL (6.4-8.2) 10/27/18 17:45 2.9 g/dL (3.4-5.0) L 10/27/18 17:45 Vancomycin Trough 14.3 ug/mL (10.0-20.0) 10/28/18 18:05
--- NOTE | 2018-10-29 09:53 | W.PM.PROGNOT ---
Date of Service Date of service: 10/29/18 Time of Service: 09:53 Assessment and Plan (1) Foot ulcer: Current visit: No Status: Acute Despite imaging, Podiatry reports findings in the OR not consistent with Osteo. Was growing Normal skin quentin and GBS (no WBC on stain) from superficial culture, but wound culture is now growing GBS as well. - Discontinue broad spectrum antibiotics in favor of IV Ceftriaxone for ease of administration. - Will plan for transition to oral penicillin soon. Current WBC increase may be reactive following surgery. - Continue to monitor WBC, CRP, and WBC. Remains afebrile. - Current plan is for a prolonged oral antibiotic therapy - per discussion with podiatry, with close follow-up. - Continue wound changes as per podiatry recommendations, currently on a Q6 basis. May require Wound Vac long-term. (2) Atrial fibrillation: Current visit: No Status: Chronic Continue BB - Coumadin on hold post-op, with plans on resuming tomorrow. (3) Gout: Current visit: No Status: Chronic Continue Allopurinol. (4) Dyslipidemia: Current visit: No Status: Acute On statin therapy. (5) CAD (coronary artery disease): Current visit: Yes Status: Chronic Verbally reports a history of an old DE (apparently diagnosed by ECG), with records showing a history of CHF. - Currently appears euvolemic by exam. Will continue CHANEL-I, BB, and statin, and request records tuesday morning. (6) DVT prophylaxis: Current visit: No Status: Acute Coumadin on hold. Plans for resumption 2 days post-op. Initiated on SCD on unaffected limb. Subjective Interval history since last seen: 77 year old diabetic man, admitted on 10/27 from [facility] Emergency Department with a diagnosis of diabetic foot ulcer. Mr. Tay has a Past Medical History significant for DM with diabetic neuropathy, Afib on AC with Warfarin, Gout, Dyslipidemia, and Cataracts. There is also mention of CHF by history without evidence of ECHO by records, and verbally reports a history of CAD as well. The patient presented to the ED with a malodorous and erythematous appearing right foot ulceration, with reported drainage at home. MRI imaging the day prior to his presentation showed potential early Osteomyelitis, and and repeat Xray at time of admission showed findings concerning for early Osteo at the base of the 5th Metatarsal. Labwork was significant for leukocytosis and elevated Lactate. The patient was initiated on broad spectrum coverage, and admitted for further evaluation and treatment of a diabetic foot infection. This morning Mr. Tay reports vast improvement in his overall symptoms. He underwent a bedside I&D via Podiatry on 10/28, and then a debridement in the OR with cultures of necrotic appearing tissue. The diagnosis of Osteo was in question as operative findings were not suggestive of bone infection, but rather inflammatory changes above the bone. Current Wound culture is growing GBS and normal quentin, but without WBCs, and culture from the OR is still pending. He feels well and has no complaints, and remains afebrile. Exam Narrative Exam Narrative: General: Patient appears comfortable, AAOX3, NAD Neck: Supple CV: Irregular, nontachycardic, S1S2, No rubs, murmurs, or gallops. Pulmonary: Clear to auscultation bilaterally, no crackles, wheezing, or rhonchi on limited anterior and lateral exam Abdomen: + Bowel Sounds, soft, nontender, nondistended Vascular: +1 b/l lower extremity edema. Skin: Right foot bandaged, with dressing appearing C/D/I. Psych: Normal mood and affect. Objective Objective Clinical Data: Abnormal lab results 10/29/18 10/29/18 10/29/18 Range/Units 06:10 06:10 06:10 WBC 15.14 H (4.4-10.8) k/cumm RBC 3.40 L (4.50-6.00) m/cumm Hgb 11.4 L (13.5-17.5) g/dL Hct 34.5 L (40.0-50.0) % MCV 101.5 H (80-95) fL MCH 33.5 H (27.0-33.0) pg Absolute Neutrophils 13.28 H (1.2-6.7) k/cumm Absolute Lymphocytes 0.55 L (1.2-3.4) k/cumm Absolute Monocytes 1.24 H (0.11-0.7) k/cumm PT 15.1 H (9.3-11.0) sec INR 1.5 H (0.9-1.1) Anion Gap 11.2 H (3-11) mmol/L BUN 31 H (7-18) mg/dL Glucose 306 H D (70-100) mg/dL Magnesium 1.5 L (1.8-2.4) mg/dL Vital Signs Temperature 36.2 C L 10/29/18 03:28 Temperature Source Tympanic 10/29/18 03:28 Pulse 79 10/29/18 03:28 Pulse Rhythm Regular 10/28/18 19:20 Respiratory Rate 18 10/29/18 03:28 Respiratory Effort Non-Labored 10/28/18 19:20 Respiratory Depth Normal 10/28/18 19:20 Respiratory Pattern Normal 10/28/18 19:20 Blood Pressure 151/93 H 10/29/18 03:28 Blood Pressure Position Sitting 10/27/18 17:26 Pulse Oximetry 99 10/29/18 03:28 Oxygen Delivery Method Room Air 10/29/18 03:28 Oxygen Flow Rate 0 10/29/18 03:28 Pain Level 0 10/29/18 03:28 Comment 10/28/18 10:15 Intake & Output 10/28/18 10/28/18 10/29/18 11:59 23:59 11:59 Intake Total 2010 / 3700 1690 / 3700 450 / 450 Output Total 350 / 1425 1075 / 1425 Balance 1660 / 2275 615 / 2275 450 / 450 Intake: IV 1650 / 2650 1000 / 2650 50 / 50 Oral 360 / 1050 690 / 1050 400 / 400 Output: Urine 350 / 1425 1075 / 1425 Other: Urine Color Yellow Yellow Urine Appearance Clear Clear Urine Odor None None Voiding Methods Urinal Urinal Laboratory Results WBC 15.14 k/cumm (4.4-10.8) H 10/29/18 06:10 RBC 3.40 m/cumm (4.50-6.00) L 10/29/18 06:10 Hgb 11.4 g/dL (13.5-17.5) L 10/29/18 06:10 Hct 34.5 % (40.0-50.0) L 10/29/18 06:10 MCV 101.5 fL (80-95) H 10/29/18 06:10 MCH 33.5 pg (27.0-33.0) H 10/29/18 06:10 MCHC 33.0 g/dL (32.0-36.0) 10/29/18 06:10 RDW 12.6 % (11.8-14.1) 10/29/18 06:10 Plt Count 257 x1000/uL (130-400) 10/29/18 06:10 MPV 9.9 fL (8.0-11.0) 10/29/18 06:10 Immature Gran % 0.3 10/29/18 06:10 87.7 10/29/18 06:10 3.6 10/29/18 06:10 8.2 10/29/18 06:10 0.1 10/29/18 06:10 0.1 10/29/18 06:10 Absolute Neutrophils 13.28 k/cumm (1.2-6.7) H 10/29/18 06:10 Absolute Lymphocytes 0.55 k/cumm (1.2-3.4) L 10/29/18 06:10 Absolute Monocytes 1.24 k/cumm (0.11-0.7) H 10/29/18 06:10 Absolute Eosinophils 0.02 k/cumm (0.0-0.7) 10/29/18 06:10 Absolute Basophils 0.02 k/cumm (0.0-0.2) 10/29/18 06:10 Manual differential 10/28/18 06:08 RBC Morphology See below 10/28/18 06:08 1+ 10/28/18 06:08 1+ 10/28/18 06:08 1+ 10/28/18 06:08 PT 15.1 sec (9.3-11.0) H 10/29/18 06:10 INR 1.5 (0.9-1.1) H 10/29/18 06:10 Sodium 139 mmol/L (136-145) 10/29/18 06:10 Potassium 4.6 mmol/L (3.5-5.1) 10/29/18 06:10 Chloride 104 mmol/L (98-107) 10/29/18 06:10 Carbon Dioxide 23.8 mmol/L (21.0-32.0) 10/29/18 06:10 11.2 mmol/L (3-11) H 10/29/18 06:10 BUN 31 mg/dL (7-18) H 10/29/18 06:10 1.16 mg/dL (0.70-1.30) 10/29/18 06:10 >= 60.00 (mL/min/1.73m2) 10/29/18 06:10 Glucose 306 mg/dL (70-100) H D 10/29/18 06:10 1.2 mmol/L (0.6-1.4) 10/28/18 07:52 Calcium 8.8 mg/dL (8.5-10.1) 10/29/18 06:10 Magnesium 1.5 mg/dL (1.8-2.4) L 10/29/18 06:10 1.3 mg/dL (0.2-1.0) H 10/27/18 17:45 AST 16 U/L (15-37) 10/27/18 17:45 ALT 17 U/L (12-78) 10/27/18 17:45 51 U/L (46-116) 10/27/18 17:45 14.38 mg/dL (0.0-0.3) H 10/28/18 06:08 7.8 g/dL (6.4-8.2) 10/27/18 17:45 2.9 g/dL (3.4-5.0) L 10/27/18 17:45 Vancomycin Trough 14.3 ug/mL (10.0-20.0) 10/28/18 18:05
[2018-10-29] MEDS: MAGNESIUM SULFATE 2 GM/50 ML BAG IVPB (11:16)
--- NOTE | 2018-10-29 11:17 | CMPROGNOTE_ITS ---
Care Management Progress Note S/O: Mauro was sitting up in his recliner. Alert and cheerful today. States he is not in any pain and the IV antibiotics seem to be helping. A:77 y.o. male admitted for Diabetic foot ulcer which was surgically debrided. Currently acute level of care receiving IV antibiotics. P: Mauro will return home when medically cleared for discharge. Paige Moody can assist with wound management and dressing changes if needed or for more extensive skilled need we can make a referral for prison. Paige Moody will transport home by car when ready.
[2018-10-29] MEDS: cefTRIAXone 2 GM/50 ML BAG IVPB (13:25)
[2018-10-29] MEDS: Simvastatin 40 MG TAB PO (19:38)
[2018-10-29] MEDS: Acetaminophen 325 MG TAB 650 MG PO (23:47)
[2018-10-30 03:15] VITALS: TEMP 37.3
[2018-10-30 04:55] VITALS: BP 133/75; PULSE 73; RESP 17; O2SAT 97
[2018-10-30 07:26] LABS: Abs Immature Grans 0.03 k/cumm (0.0-0.09); HCT 34.2 % (40.0-50.0); HGB 11.4 g/dL (13.5-17.5); Mean Corp. HGB Concentration 33.3 g/dL (32.0-36.0); Mean Corpuscular Volume 102.1 fL (80-95); Mean Platelet Volume 9.6 fL (8.0-11.0); Platelet Count 275 x1000/uL (130-400); RBC 3.35 m/cumm (4.50-6.00); RBC Distribution Width 12.8 % (11.8-14.1); White Blood Cell Count 12.71 k/cumm (4.4-10.8)
[2018-10-30 07:43] LABS: Anion Gap 9.8 mmol/L (3-11); BUN 27 mg/dL (7-18); C-Reactive Protein 7.93 mg/dL (0.0-0.3); CO2 25.2 mmol/L (21.0-32.0); CREATININE 1.02 mg/dL (0.70-1.30); Calcium 8.5 mg/dL (8.5-10.1); Chloride 106 mmol/L (98-107); Glucose 216 mg/dL (70-100); Magnesium 1.3 mg/dL (1.8-2.4); Potassium 4.1 mmol/L (3.5-5.1); Sodium 141 mmol/L (136-145)
[2018-10-30 07:45] VITALS: BP 153/90; PULSE 86; RESP 18; TEMP 37.2; O2SAT 94
[2018-10-30 07:45] LABS: INR 1.4 (0.9-1.1)
--- NOTE | 2018-10-30 07:49 | W.PM.PROGNOT ---
Date of Service Date of service: 10/30/18 Time of Service: 07:49 Subjective Interval history since last seen: nory is seen at bedside. He awoke this morning somewhat confused and indicated he thought he was going to go home this morning. He is receiving vital checks every 4 hours and wound care every 6 hours which is clearly disrupting his sleep patterns. He does indicate that he has a little discomfort in his right foot but not enough to call for pain medications. Exam Narrative Exam Narrative: Vitals BP is 133/75, pulse 73, respirations 17, O2 sat room air is 97%. Morning labs are pending. Dressings are removed from the right foot. The foot is warm to the touch, capillary return is under 5 seconds. I did use the Doppler in the dorsalis pedis and posterior tibial arteries are audible they are monophasic and softly blowing in nature. The wound continues to show mottling around the margins, he still has tunneling going proximally just along the anterior lateral aspect up to about the ankle, and he has a new tunnel now running plantarly from the base of the fifth metatarsal area to about the midfoot. Skin changes plantarly are noted evolving indicative of infection. The peroneal tendons were completely asymptomatic. Microbiology continues to show wounds organisms group B strep. He is currently on ceftriaxone IV. Impressions diabetic ulceration with underlying vascular insufficiency, clinically worsening Plan: I discussed the case with Dr. Evans, and am recommending transfer to [facility] for vascular intervention. Clinical studies will support early intervention (vascular stenting) for enhanced clinical outcomes with diabetic wounds. Radiologically, vascular calcifications are noted within the foot and ABIs will be unreliable. If the transfer cannot be achieved today, I will bring Nory to the operating room to further debride the wound and try to stabilize any worsening infection. The patient is aware of these decisions and agrees. Objective Objective Clinical Data: Abnormal lab results 10/30/18 10/30/18 Range/Units 06:34 06:34 PT 14.0 H (9.3-11.0) sec INR 1.4 H (0.9-1.1) BUN 27 H (7-18) mg/dL Glucose 216 H D (70-100) mg/dL Magnesium 1.3 L (1.8-2.4) mg/dL C-Reactive Protein 7.93 H (0.0-0.3) mg/dL Vital Signs Temperature 37.3 C 10/30/18 03:15 Temperature Source Tympanic 10/30/18 03:15 Pulse 73 10/30/18 04:55 Pulse Rhythm Regular 10/29/18 19:15 Respiratory Rate 17 10/30/18 04:55 Respiratory Effort Non-Labored 10/29/18 19:15 Respiratory Depth Normal 10/29/18 19:15 Respiratory Pattern Normal 10/29/18 19:15 Blood Pressure 133/75 10/30/18 04:55 Blood Pressure Position Sitting 10/27/18 17:26 Pulse Oximetry 97 10/30/18 04:55 Oxygen Delivery Method Room Air 10/30/18 04:55 Oxygen Flow Rate 0 10/30/18 04:55 Pain Level 0 10/29/18 19:30 Comment 10/28/18 10:15 Intake & Output 10/29/18 10/30/18 10/30/18 18:59 06:59 18:59 Intake Total 1270 / 1720 450 / 1720 Output Total 1100 / 1100 Balance 170 / 620 450 / 620 Weight 99.6 kg Intake: IV 150 / 200 50 / 200 Oral 1120 / 1520 400 / 1520 Output: Urine 1100 / 1100 Other: Urine Color Dark [place] Urine Appearance Clear Comment also up to toilet at times pt gets up AD SAMUEL to void in toilet, no hat at this time. Voiding Methods Diaper Toilet Laboratory Results WBC 15.14 k/cumm (4.4-10.8) H 10/29/18 06:10 RBC 3.40 m/cumm (4.50-6.00) L 10/29/18 06:10 Hgb 11.4 g/dL (13.5-17.5) L 10/29/18 06:10 Hct 34.5 % (40.0-50.0) L 10/29/18 06:10 MCV 101.5 fL (80-95) H 10/29/18 06:10 MCH 33.5 pg (27.0-33.0) H 10/29/18 06:10 MCHC 33.0 g/dL (32.0-36.0) 10/29/18 06:10 RDW 12.6 % (11.8-14.1) 10/29/18 06:10 Plt Count 257 x1000/uL (130-400) 10/29/18 06:10 MPV 9.9 fL (8.0-11.0) 10/29/18 06:10 Immature Gran % 0.3 10/29/18 06:10 87.7 10/29/18 06:10 3.6 10/29/18 06:10 8.2 10/29/18 06:10 0.1 10/29/18 06:10 0.1 10/29/18 06:10 Absolute Neutrophils 13.28 k/cumm (1.2-6.7) H 10/29/18 06:10 Absolute Lymphocytes 0.55 k/cumm (1.2-3.4) L 10/29/18 06:10 Absolute Monocytes 1.24 k/cumm (0.11-0.7) H 10/29/18 06:10 Absolute Eosinophils 0.02 k/cumm (0.0-0.7) 10/29/18 06:10 Absolute Basophils 0.02 k/cumm (0.0-0.2) 10/29/18 06:10 Manual differential 10/28/18 06:08 RBC Morphology See below 10/28/18 06:08 1+ 10/28/18 06:08 1+ 10/28/18 06:08 1+ 10/28/18 06:08 PT 14.0 sec (9.3-11.0) H 10/30/18 06:34 INR 1.4 (0.9-1.1) H 10/30/18 06:34 Sodium 141 mmol/L (136-145) 10/30/18 06:34 Potassium 4.1 mmol/L (3.5-5.1) 10/30/18 06:34 Chloride 106 mmol/L (98-107) 10/30/18 06:34 Carbon Dioxide 25.2 mmol/L (21.0-32.0) 10/30/18 06:34 9.8 mmol/L (3-11) 10/30/18 06:34 BUN 27 mg/dL (7-18) H 10/30/18 06:34 1.02 mg/dL (0.70-1.30) 10/30/18 06:34 >= 60.00 (mL/min/1.73m2) 10/30/18 06:34 Glucose 216 mg/dL (70-100) H D 10/30/18 06:34 1.2 mmol/L (0.6-1.4) 10/28/18 07:52 Calcium 8.5 mg/dL (8.5-10.1) 10/30/18 06:34 Magnesium 1.3 mg/dL (1.8-2.4) L 10/30/18 06:34 1.3 mg/dL (0.2-1.0) H 10/27/18 17:45 AST 16 U/L (15-37) 10/27/18 17:45 ALT 17 U/L (12-78) 10/27/18 17:45 51 U/L (46-116) 10/27/18 17:45 7.93 mg/dL (0.0-0.3) H 10/30/18 06:34 7.8 g/dL (6.4-8.2) 10/27/18 17:45 2.9 g/dL (3.4-5.0) L 10/27/18 17:45 Vancomycin Trough 14.3 ug/mL (10.0-20.0) 10/28/18 18:05
--- NOTE | 2018-10-30 07:53 | ROE_ITS ---
REPORT OF OPERATIVE PROCEDURE DATE OF PROCEDURE October 28, 2018 PREOPERATIVE DIAGNOSES Diabetic ulceration with abscess and cellulitis, right foot. POSTOPERATIVE DIAGNOSES Diabetic ulceration with abscess and cellulitis, right foot. PROCEDURE Incision and drainage of gangrenous tissue to fascia. Wound measured 5 cm in length by 4.5 cm in width and went down to the deep fascia. OPERATIVE INDICATIONS A 77-year-old male who noticed a blister at the base of the right fifth metatarsal approximately 10 d ays ago. The lesion went on to progress, became necrotic with cellulitis extending into his distal le g. He did receive foot x-rays and an MRI. He was admitted last night to the Hospitalist Service and c onsulted by myself where a gangrenous wound was appreciated. He is being brought to the OR for resect ion of necrotic tissue, drainage of infected material, debridement of the wound. Informed consent has been obtained. He understands that he will have a wound at the end of this that will require potenti ally multiple debridements, revisional procedures, prolonged episode of healing. All questions have b een answered. Informed consent obtained. DESCRIPTION OF PROCEDURE Mauro was brought to the Operating Suite and placed in the supine position where the right foot was prepped and draped in the usual sterile podiatric fashion. Timeout was performed. The surgical team huddled. The patient was identified. No allergies noted. All concerns addressed. Attention was directed to the right, where a tourniquet was applied above the ankle, well padded, 250 mmHg. A freer elevator was inserted into the wound, which was located over the lateral aspect base of the fifth metatarsal. The tunnel ran proximal dorsal to just below the level of the ankle joint, w ent in approximately 5 cm. With a #10-scapel, full thickness incision was performed over the freer elevator from about fpc f rom the wound to the ankle joint region. Once this was opened, a small amount of free flowing, very s tahira, grayish-green pus was extruded from the wound. The wound margins and immediate tissue had no c apillary return even before the tourniquet was raised and appeared gangrenous. With a #15-scapel and pickup, the necrotic tissue was widely excised. The base of the wound was debri ded down and we did go all the way to the fibrous layer overlying the base of the fifth metatarsal an d the deeper fascia within the foot itself. There were no defects at this level indicating that the b one was actively involved. Since the covering did appear to be whole, I decided not to make a defect within this covering and expose the bone, and did not perform bone biopsy at this time. The wound was copiously irrigated. The tourniquet was released at 14 minutes. Hemostasis was acquired with electro cautery. Once again, the wound was copiously irrigated. A 1/4-inch Sumi drain was then inserted into the re maining depth of the Sinus tract from the most proximal aspect of the wound proximally and 1/4 packi ng tape applied within the wound itself. A wet-to-dry dressing was applied. Mauro left the OR with vital signs stable, vascular status intact. He will remain in house for wound care, IV antibiotics, pain control as needed.
[2018-10-30] MEDS: Lisinopril 10 MG TAB 20 MG PO (08:20)
[2018-10-30] MEDS: Metoprolol CR 100 MG TABCR 300 MG PO (08:20)
[2018-10-30] MEDS: Loratidine 10 MG TAB PO (08:20)
[2018-10-30] MEDS: Allopurinol 100 MG TAB 200 MG PO (08:20)
[2018-10-30] MEDS: Normal Saline Flush 10 ML SYR IVP (08:21)
[2018-10-30 08:30] LABS: Absolute Lymphocyte Count 1.02 k/cumm (1.2-3.4)
[2018-10-30 08:31] LABS: Atypical Lymphocytes % 1; Diff Comment Manual Differential
[2018-10-30 08:32] LABS: Poikilocytes 1+
[2018-10-30 10:15] VITALS: BP 150/89; PULSE 95; RESP 18; TEMP 37.5; O2SAT 97
[2018-10-30] MEDS: MAGNESIUM SULFATE 4 GM/100 ML BAG IVPB (10:50)
--- NOTE | 2018-10-30 11:02 | PDOC.CMPRO ---
Care Management Progress Note S/O-Met with Mauro this AM. He is waiting to hear if he will be transferred. He is aware he may need services for more complex wound care on d/c and is receptive to this plan if necessary. A-77 yo man admitted with diabetic foot ulcer. Remains acute LOC with IV Abx. P-Awaiting instructions on whether he will be transferred. It was later learned that he will be transferred to [facility] [place] care.
--- NOTE | 2018-10-30 11:55 | DSE_ITS ---
Date of service: 10/30/18 Time of Service: 11:56 DS: Diagnosis Discharge Diagnosis (1) Foot ulcer: Status: Acute (2) Atrial fibrillation: Status: Chronic (3) Gout: Status: Chronic (4) Dyslipidemia: Status: Acute (5) CAD (coronary artery disease): Status: Chronic Discharge Plan Disposition Patient Disposition: [facility] Condition: Stable Discharge Details Chief Complaint: GenMedical Clinical Impression: Diabetic infection of right foot Reason For Visit: DIABETIC FOOT ULCER Admit Date/Time: 10/27/18 19:10 Admit Provider: Chance Galvan Attending Provider: Chance Galvan Primary Care Provider: Delon Jean ED Provider: Juve Puga Hospital Course Hospital Course: Chief Complaint: Foot Wound HPI: 77 year old diabetic man, admitted on 10/27 from [facility] Emergency Department with a diagnosis of diabetic foot ulcer. Mr. Tay has a Past Medical History significant for DM with diabetic neuropathy, Afib on AC with Warfarin, Gout, Dyslipidemia, and Cataracts. There is also mention of CHF by history without evidence of ECHO by records, and verbally reports a history of CAD as well. The patient presented to the ED with a malodorous and erythematous appearing right foot ulceration, with reported drainage at home. MRI imaging the day prior to his presentation showed potential early Osteomyelitis, and and repeat Xray at time of admission showed findings concerning for early Osteo at the base of the 5th Metatarsal. Labwork was significant for leukocytosis and elevated Lactate. The patient was initiated on broad spectrum coverage, and admitted for further evaluation and treatment of a diabetic foot infection. Mr. Tay reports vast improvement in his overall symptoms since the time of admission. He underwent a bedside I&D via Podiatry on 10/28, and then a debridement in the OR with cultures of necrotic appearing tissue. The diagnosis of Osteo was in question as operative findings were not suggestive of bone infection, but rather inflammatory changes above the bone. Current Wound culture is growing GBS. He feels well and has no complaints. However he had a one time fever last night of 38.2. Upon evaluation of the wound this morning Dr. Gil White of podiatry reports that the patient's wound appears to have regressed and showing signs of worsening, with concern for underlying vascular insufficiency and poor wound healing as the cause. DP and PT pulses were dopplered at bedside, but the wound appears to show mottling around the margins, with tunneling inside the wound that is both new and pre-existing. Overall, recommendations were for transfer for further vascular evaluation and intervention if deemed appropriate, to assist in wound healing, especially if repeat debridement is required long-term. Hospital Course: (1) Foot ulcer: Patient received 1 day of Vanc/Pip-Rian prior to change to high dose IV Ceftriaxone, currently day #2. Wound culture with continued growth of Group B Strep. Patient has been accepted at [facility] via Vascular Surgery for above mentioned reasons. (2) Atrial fibrillation: Has been rate controlled and asymptomatic. Continue BB - Coumadin on hold post- op, and will continue to hold incase patient requires further surgery or vascular intervention. (3) Gout: Continue Allopurinol. (4) Dyslipidemia: On statin therapy. (5) CAD (coronary artery disease): Verbally reports a history of an old ND (apparently diagnosed by ECG), with records showing a history of CHF. Unfortunately as the patient's care was over the weekend, access to records were not available. - Currently appears euvolemic by exam. Will continue CHANEL-I, BB, and statin. (6) DVT prophylaxis: Coumadin on hold. Plans had been for resumption today, but as patient is being transferred and may potentially requiring further intervention will hold off. Current INR is 1.4. Initiated on SCD on unaffected limb previously. Home Meds and New Rx's Prescriptions: Continued multivitamin tablet 1 tab PO DAILY RF: 0 simvastatin 40 mg tablet 40 mg PO QPM RF: 0 metoprolol succinate 100 mg tablet extended release 24 hr 300 mg PO DAILY Qty: 3 RF: 0 metformin 500 MG tablet 1,000 mg PO BID RF: 0 allopurinol 100 MG tablet 200 mg PO DAILY RF: 0 lisinopril 10 MG tablet 20 mg PO DAILY RF: 0 warfarin [Coumadin] 1 MG tablet 1 mg PO DAILY RF: 0 celecoxib [Celebrex] 100 mg Capsule 100 mg PO BID RF: 0 loratadine 10 MG tablet 10 mg PO DAILY RF: 0 Discharge Instructions Activity:: OOB to chair Diet:: Carb Counting Discharge Orders Discharge Orders: Discharge Order (Routine); Ordered 10/30/18 Ordered By: Abram Evans DS: Data Vitals/I&O Vitals and I&O: Vital Signs Temperature 37.5 C 10/30/18 10:15 Temperature Source Tympanic 10/30/18 10:15 Pulse 95 H 10/30/18 10:15 Pulse Rhythm Regular 10/29/18 19:15 Respiratory Rate 18 10/30/18 10:15 Respiratory Effort 10/30/18 08:15 Respiratory Depth Normal 10/30/18 08:15 Respiratory Pattern Normal 10/30/18 08:15 Blood Pressure 150/89 H 10/30/18 10:15 Blood Pressure Position Sitting 10/27/18 17:26 Pulse Oximetry 97 10/30/18 10:15 Oxygen Delivery Method Room Air 10/30/18 10:15 Oxygen Flow Rate 0 10/30/18 10:15 Pain Level 0 10/30/18 10:15 Comment 10/28/18 10:15 Intake & Output 10/29/18 10/29/18 10/30/18 11:59 23:59 11:59 Intake Total 900 / 1970 1070 / 1970 200 / 200 Output Total 750 / 1100 350 / 1100 Balance 150 / 870 720 / 870 200 / 200 Weight 99.6 kg Intake: IV 100 / 250 150 / 250 Oral 800 / 1720 920 / 1720 200 / 200 Output: Urine 750 / 1100 350 / 1100 Other: Urine Color Light Juana Dark Juana Urine Appearance Clear Comment also up to toilet at times pt flushed before could look at unable to measure Voiding Methods Urinal Diaper Toilet Pending studies at discharge: Exam(s) 10/26/2018 a MRI:MR lower extremity RT wo/w SYMPTOM/DIAGNOSIS: FOOT PAIN, RT M79.671 MRI RIGHT FOOT: 10/26 MRI examination of the foot was performed according to the usual protocol with additional pre and post contrast. Multiplanar T1 FS images. The patient denies a foot ulceration or focal point tenderness at this time. Imaging of the mid foot and fore foot shows no gross focal bony defect. There is question of minimally abnormal signal in the base of the 5th metatarsal which is a nonspecific finding and may be artifactual. There is question again of minimal enhancement at the base of the 5th metatarsal. No osteolytic lesion seen. The remainder of the bones appear normal. No tenderness or ligamentous abnormality identified in the mid foot or forefoot. Question minimal signal changes and minimal enhancement in the base of the 5th metatarsal. CONCLUSION: Minimal signal changes and enhancement of the base of the 5th metatarsal. The pattern would be most consistent with a mild stress reaction. No gross evidence of osteomyelitis. Very early osteomyelitis not entirely excluded. Appropriate clinical follow up recommended. Exam(s) 10/27/2018 a RAD:XR foot RT complete SYMPTOM/DIAGNOSIS: WORSENING RT 5TH ULCER, ODOR RIGHT FOOT: Three is soft tissue gas adjacent to the base of the fifth metatarsal where the patient reportedly has a foot ulcer. The underlying bone shows question of focal demineralization which was not present on the previous examination of 10/23. The findings could represent early osteomyelitis. I would note that foot MRI obtained on 10/26 did not show convincing evidence of osteomyelitis. Appropriate follow up studies requested. Labs on day of discharge: Labs from last 24 hours 10/30/18 10/30/18 10/30/18 06:34 06:34 06:34 WBC 12.71 H RBC 3.35 L Hgb 11.4 L Hct 34.2 L MCV 102.1 H MCH 34.0 H MCHC 33.3 RDW 12.8 Plt Count 275 MPV 9.6 Immature Gran % 0.0 Neutrophils % 76.0 Band Neutrophils % 5.0 Lymphocytes % 7.0 Atypical Lymphs % 1 Monocytes % 11.0 Eosinophils % 0.0 Basophils % 0.0 Absolute Neutrophils 10.30 H Absolute Lymphocytes 1.02 L Absolute Monocytes 1.40 H Absolute Eosinophils 0.00 Absolute Basophils 0.00 Differential Comment Manual differential RBC Morphology See below Poikilocytosis 1+ PT 14.0 H INR 1.4 H Sodium 141 Potassium 4.1 Chloride 106 Carbon Dioxide 25.2 Anion Gap 9.8 BUN 27 H Creatinine 1.02 Estimated GFR/1.73 m2 >= 60.00 Glucose 216 H D Calcium 8.5 Magnesium 1.3 L C-Reactive Protein 7.93 H Preliminary micro results at discharge 10/28/18 08:05 Wound Culture - Preliminary Foot - Right Streptococcus Agalactiae(Gp B) Normal Evelia 10/27/18 18:10 Blood Culture - Preliminary Blood NO GROWTH 48 HOURS 10/27/18 17:45 Blood Culture - Preliminary Blood NO GROWTH 48 HOURS Blood Culture ( Age => 10 Yrs) Preliminary 10/29/18-1958 NO GROWTH 48 HOURS [facility] Medical History A-fib Acne rosacea (Acute) Adenomatous polyp Anticoagulation therapy continued upon discharge (Acute) Cardiomyopathy (Acute) Carpal tunnel syndrome on both sides (Acute) Cataract (Chronic) CHF (congestive heart failure) Colon polyps (Acute) Cortical cataract of left eye (Resolved) Diabetes Diverticulitis (Chronic) Epistaxis (Acute) Gout Hyperlipidemia (Acute) Inguinal hernia (Acute) Nuclear sclerotic cataract of left eye (Resolved) Paresthesias (Acute) Perennial allergic rhinitis (Acute) Peripheral neuropathy Skin lesion (Acute) Stasis dermatitis Varicose veins of bilateral lower extremities with other complications (Acute) Venous stasis ulcer (Acute) Surgical History History of cataract surgery (Chronic) History of colonoscopy (Chronic) Hx of arthroscopy of knee (Acute) Hx of inguinal hernia repair (Acute) Status post cataract extraction and insertion of intraocular lens of left eye (Chronic 06/16/18) Status post cataract extraction and insertion of intraocular lens of right eye (Chronic 07/03/18) Family History Other Lung cancer Social History Smoking/Tobacco Use Status: Former Tobacco Use Quit Date: 07/12/90 Alcohol Intake: current Alcohol Intake frequency: 3 or more drinks per day Alcohol type: beer Drug use: Never Do you feel safe at home: Yes Do you feel safe in your relationship?: Yes
[2018-10-30] MEDS: Insulin Aspart 300 UNITS/3 ML PEN SC (12:04)
[2018-10-30] MEDS: cefTRIAXone 2 GM/50 ML BAG IVPB (12:26)
[2018-10-30 12:29] VITALS: BP 144/90; PULSE 96; RESP 16; TEMP 37.6; O2SAT 96
--- NOTE | 2018-10-30 13:23 | NUR.NOTE ---
Report given to [facility] nurse Villalobos on at 13:23Nursing Note:
--- NOTE | 2018-10-30 13:24 | CHAPLAIN ---
Mauro was resting in bed when I stopped in. He said he's waiting to hear if he will be [place] [facility] for his foot ulcer. Mauro is listed as being connected to [facility] in [place], but he said he has not been affiliated with that worship in many years. He now considers [facility] his worship. He doesn't attend this worship, but his is very involved with it. He said his has likely told the lamp cleaner the Mauro is here. Mauro's son, who is an EMT in [place], is at Mauro's house in [place] and will go with Mauro's to where ever Mauro is transferred.
== END 2018-10-30 13:30 | disposition short-term general hospital (02) | DRG 623 ==
LOC: ER 19:34 → MS 19:55
PROVIDERS: Podiatrist; Admitting Provider General Practice; Emergency Provider Emergency Medicine; PCP Internal Medicine; Visit Provider Internal Medicine
PROC: 0JBQ0ZZ Excision of Right Foot Subcutaneous Tissue and Fascia, Open Approach (ICD-10-PCS; CPT 11043; principal; 2018-10-28 09:00)
DX: E11.621 Type 2 diabetes mellitus with foot ulcer (principal); L97.416 Non-pressure chronic ulcer of right heel and midfoot with bone involvement without evidence of necrosis; L03.115 Cellulitis of right lower limb; B95.1 Streptococcus, group B, as the cause of diseases classified elsewhere; E11.42 Type 2 diabetes mellitus with diabetic polyneuropathy; Z79.01 Long term (current) use of anticoagulants; E78.5 Hyperlipidemia, unspecified; M10.9 Gout, unspecified; I48.91 Unspecified atrial fibrillation
CPT/HCPCS: 11043; 11046; 36415; 80048; 80053; 87040; 87077; 96361; 96365; 99222; 99232; 99233; 99239; 99285; 73630; 80202; 83605; 83735; 85025; 85610; 86140; 87070; 87205; 99284; J1100; J1885; J2250; J2405; J2543; J3010; J3475

== ENCOUNTER 2018-11-13 19:34 | Outpatient (REF) | payer OTHER, SELFPAY ==
[2018-11-13 16:09] LABS: Abs Immature Grans 0.01 k/cumm (0.0-0.09); Absolute Basophil Count 0.05 k/cumm (0.0-0.2); Absolute Eosinophil Count 0.22 k/cumm (0.0-0.7); Absolute Lymphocyte Count 1.78 k/cumm (1.2-3.4); Absolute Neutrophil Count 2.42 k/cumm (1.2-6.7); Basophils % 0.9; Eosinophils % 4.2; HGB 10.6 g/dL (13.5-17.5); Immature Grans % 0.2; Lymphocytes % 33.7; Mean Corp. HGB Concentration 33.1 g/dL (32.0-36.0); Mean Corpuscular Hemoglobin 34.1 pg (27.0-33.0); Mean Corpuscular Volume 102.9 fL (80-95); Mean Platelet Volume 9.8 fL (8.0-11.0); Monocytes % 15.2; Neutrophils % 45.8; Platelet Count 362 x1000/uL (130-400); RBC 3.11 m/cumm (4.50-6.00); RBC Distribution Width 13.3 % (11.8-14.1); White Blood Cell Count 5.28 k/cumm (4.4-10.8)
[2018-11-13 16:18] LABS: ALT 22 U/L (16-63); AST 18 U/L (15-37); Albumin 2.6 g/dL (3.4-5.0); Alkaline Phosphatase 45 U/L (46-116); Anion Gap 8.6 mmol/L (3-11); BUN 11 mg/dL (7-18); Bilirubin, Total 0.5 mg/dL (0.2-1.0); C-Reactive Protein 0.23 mg/dL (0.0-0.3); CO2 26.4 mmol/L (21.0-32.0); CREATININE 0.88 mg/dL (0.70-1.30); Calcium 8.8 mg/dL (8.5-10.1); Chloride 105 mmol/L (98-107); Glucose 102 mg/dL (70-100); Potassium 4.2 mmol/L (3.5-5.1); Sodium 140 mmol/L (136-145); Total Protein 6.6 g/dL (6.4-8.2)
== END 2018-11-13 19:54 ==
LOC: LBN 19:34
PROVIDERS: PCP Internal Medicine; Visit Provider Internal Medicine Infectious Disease
DX: M86.071 Acute hematogenous osteomyelitis, right ankle and foot (principal)
CPT/HCPCS: 80053; 85025; 86140

== ENCOUNTER 2019-02-01 21:04 | Outpatient (REF) | payer OTHER, SELFPAY ==
[2019-02-01 21:13] LABS: Absolute Basophil Count 0.03 k/cumm (0.0-0.2); Absolute Eosinophil Count 0.38 k/cumm (0.0-0.7); Absolute Lymphocyte Count 1.14 k/cumm (1.2-3.4); Absolute Monocyte Count 0.55 k/cumm (0.11-0.7); Absolute Neutrophil Count 2.96 k/cumm (1.2-6.7); Basophils % 0.6; Eosinophils % 7.5; HCT 34.1 % (40.0-50.0); HGB 11.1 g/dL (13.5-17.5); Lymphocytes % 22.5; Mean Corp. HGB Concentration 32.6 g/dL (32.0-36.0); Mean Corpuscular Hemoglobin 31.7 pg (27.0-33.0); Mean Corpuscular Volume 97.4 fL (80-95); Mean Platelet Volume 10.4 fL (8.0-11.0); Monocytes % 10.9; Neutrophils % 58.5; Platelet Count 208 x1000/uL (130-400); RBC Distribution Width 13.5 % (11.8-14.1); White Blood Cell Count 5.06 k/cumm (4.4-10.8)
[2019-02-01 21:51] LABS: ESR 51 mm/hr (1-20)
[2019-02-01 22:09] LABS: C-Reactive Protein 0.82 mg/dL (0.0-0.3)
== END 2019-02-01 21:24 ==
LOC: NCHCN 21:04
PROVIDERS: PCP Internal Medicine; Visit Provider Internal Medicine
DX: L97.519 Non-pressure chronic ulcer of other part of right foot with unspecified severity (principal); M86.171 Other acute osteomyelitis, right ankle and foot
CPT/HCPCS: 85652; 85025; 86140

== ENCOUNTER 2019-08-10 11:47 | Outpatient (REF) | payer OTHER, SELFPAY ==
[2019-08-10 21:35] LABS: Anion Gap 5.4 mmol/L (3-11); BUN 17 mg/dL (7-18); CO2 28.6 mmol/L (21.0-32.0); CREATININE 1.02 mg/dL (0.70-1.30); Calculated LDL 47 mg/dL (<100); Chloride 103 mmol/L (98-107); Cholesterol 122 mg/dL (<200); Glucose 168 mg/dL (74-106); HDL Cholesterol 69 mg/dL (40-60); Potassium 4.7 mmol/L (3.5-5.1); Sodium 137 mmol/L (136-145); Triglyceride 33 mg/dL (<150)
[2019-08-10 21:54] LABS: Hemoglobin A1C 6.2 % (3.8-5.6)
== END 2019-08-10 12:07 ==
LOC: NCHCN 11:47
PROVIDERS: PCP Internal Medicine; Visit Provider Internal Medicine
DX: E11.9 Type 2 diabetes mellitus without complications (principal); Z79.899 Other long term (current) drug therapy
CPT/HCPCS: 80048; 80061; 83036

== ENCOUNTER 2020-02-21 02:05 | Outpatient (CLI) | payer OTHER, SELFPAY ==
--- NOTE | 2020-02-21 | DI.MRI_ITS ---
EXAM: MR ABDOMEN WO/W CLINICAL HISTORY: ? PANCREATIC CYST,F/U CTA AT [facility]. TECHNIQUE: Multiplanar multisequence MRI was performed. COMPARISON: No exams were available for comparison FINDINGS: MR examination of the abdomen was performed utilizing pancreatic protocol including pre and post-cont rast scanning. The liver and spleen show normal signal. Gallbladder and bile ducts appear intact. The adrenals and kidneys appear normal. No hydronephrosis. Abdominal aorta and visualized major branches appear int act. No adenopathy identified. The patient reportedly has had prior study showing suggestion of a pancreatic cyst. Today's examinat ion shows an approximately 9 x 9 millimeter in diameter fluid signal mass of the body of the pancreas . There is no pancreatic ductal dilatation. I am uncertain whether this communicates with the pancr eatic duct. There appear to be a couple of tiny smaller fluid signal masses measuring about 2 millim eters in diameter. These are not well visualized. These are also indeterminate for communication wi th the pancreatic duct. No enhancement identified in these cystic lesions. The anatomy of these lesions is somewhat suggestive of side branch IPMN. Other benign or malignant c ystic conditions not excluded. Side branch IPMN has a significant incidence of malignancy. Close fo llow-up, endoscopic ultrasound, or tissue sampling should be considered. IMPRESSION: DATA REPOSITORY:
[2020-02-21 14:57] LABS: CREATININE 1.12 mg/dL (0.70-1.30)
[2020-02-21] MEDS: Gadoterate meglumine 20 ML VIAL IVP (15:30)
== END 2020-02-21 02:25 ==
PROVIDERS: PCP Internal Medicine; Visit Provider Internal Medicine
DX: R93.5 Abnormal findings on diagnostic imaging of other abdominal regions, including retroperitoneum (principal); Z00.00 Encounter for general adult medical examination without abnormal findings
CPT/HCPCS: 74183; 82565

== ENCOUNTER 2020-11-12 15:54 | Outpatient (REF) | payer OTHER, SELFPAY | END 2020-11-12 15:55 | disposition home or self-care (01) | LOC: NCHCN 15:54 | PROVIDERS: PCP Internal Medicine; Visit Provider Family Medicine | DX: E11.621 Type 2 diabetes mellitus with foot ulcer (principal) | CPT/HCPCS: 87077; 87070; 87186; 87205 ==

== ENCOUNTER 2020-12-08 15:06 | Outpatient (REF) | payer OTHER, SELFPAY ==
[2020-12-08 21:08] LABS: HCT 32.7 % (40.0-50.0); HGB 10.1 g/dL (13.5-17.5); MCH 32.2 pg (27.0-33.0); MCHC 30.9 % (32.0-36.0); MCV 104.1 fL (80-95); MPV 9.9 fL (8.0-11.0); Platelet Count 260 10^3/uL (130-400); RBC 3.14 10^6/uL (4.36-5.78); RDW 14.5 % (11.8-14.1); RDW-SD 54.9 fL; WBC 7.13 10^3/uL (4.4-10.8)
[2020-12-08 21:46] LABS: ALT 19 U/L (16-63); AST 22 U/L (15-37); Albumin 3.4 g/dL (3.4-5.0); Alkaline Phosphatase 68 U/L (46-116); BUN 25 mg/dL (7-18); Bilirubin, Total 0.6 mg/dL (0.2-1.0); CREATININE 1.2 mg/dL (0.70-1.30); Calcium 9.2 mg/dL (8.5-10.1); Chloride 108 mmol/L (98-107); Estimated GFR 58.26 (mL/min/1.73m2); Glucose 123 mg/dL (74-106); Potassium 5.3 mmol/L (3.5-5.1); Sodium 142 mmol/L (136-145); Total Protein 7.9 g/dL (6.4-8.2)
== END 2020-12-08 15:07 | disposition home or self-care (01) ==
LOC: NCHCN 15:06
PROVIDERS: PCP Internal Medicine; Visit Provider Family Medicine
DX: E11.9 Type 2 diabetes mellitus without complications (principal); E78.5 Hyperlipidemia, unspecified; I73.9 Peripheral vascular disease, unspecified
CPT/HCPCS: 80053; 85027

== ENCOUNTER 2021-03-18 16:07 | Outpatient (REF) | payer OTHER, SELFPAY ==
[2021-03-18 20:31] LABS: Abs Immature Grans 0.01 10^3/uL (0.0-0.06); Absolute Basophil Count 0.06 10^3/uL (0.0-0.2); Absolute Eosinophil Count 0.63 10^3/uL (0.0-0.7); Absolute Lymphocyte Count 1.75 10^3/uL (1.2-3.4); Absolute Monocyte Count 0.87 10^3/uL (0.1-0.8); Absolute Neutrophil Count 3.78 10^3/uL (1.2-6.7); Basophils % 0.8; Eosinophils % 8.9; HCT 34.6 % (40.0-50.0); HGB 10.8 g/dL (13.5-17.5); Immature Grans % 0.1; Lymphocytes % 24.6; MCH 31.6 pg (27.0-33.0); MCHC 31.2 % (32.0-36.0); MCV 101.2 fL (80-95); Monocytes % 12.3; Neutrophils % 53.3; Nucleated RBC 0 %; Platelet Count 212 10^3/uL (130-400); RBC 3.42 10^6/uL (4.36-5.78); RDW 14.1 % (11.8-14.1); RDW-SD 52.2 fL
[2021-03-18 20:32] LABS: ESR 25 mm/hr (0-20)
[2021-03-18 20:36] LABS: Anion Gap 3.5 mmol/L (3-11); BUN 22 mg/dL (7-18); C-Reactive Protein 0.15 mg/dL (0.0-0.3); CO2 31.5 mmol/L (21.0-32.0); Calcium 9.1 mg/dL (8.5-10.1); Chloride 105 mmol/L (98-107); Glucose 90 mg/dL (74-106); Potassium 5.2 mmol/L (3.5-5.1); Sodium 140 mmol/L (136-145)
== END 2021-03-18 16:08 | disposition home or self-care (01) ==
LOC: NCHCN 16:07
PROVIDERS: PCP Internal Medicine; Visit Provider Family Medicine
DX: E11.621 Type 2 diabetes mellitus with foot ulcer; I73.9 Peripheral vascular disease, unspecified
CPT/HCPCS: 80048; 85652; 85025; 86140

== ENCOUNTER 2022-04-02 13:46 | Outpatient (REF) | payer OTHER, SELFPAY ==
[2022-04-02 15:47] LABS: Abs Immature Grans 0.02 10^3/uL (0.0-0.06); Absolute Basophil Count 0.07 10^3/uL (0.0-0.2); Absolute Eosinophil Count 0.29 10^3/uL (0.0-0.7); Absolute Lymphocyte Count 1.14 10^3/uL (1.2-3.4); Absolute Monocyte Count 0.65 10^3/uL (0.1-0.8); Basophils % 1.1; Eosinophils % 4.7; HCT 30.1 % (40.0-50.0); HGB 10.1 g/dL (13.5-17.5); Immature Grans % 0.3; Lymphocytes % 18.5; MCH 33.2 pg (27.0-33.0); MCHC 33.6 % (32.0-36.0); MCV 99 fL (80-95); MPV 9.7 fL (8.0-11.0); Monocytes % 10.5; Neutrophils % 64.9; Platelet Count 170 10^3/uL (130-400); RBC 3.04 10^6/uL (4.36-5.78); RDW 15.2 % (11.8-14.1); RDW-SD 55.5 fL; Reticulocyte 1.4 % (0.5-2.4); WBC 6.17 10^3/uL (4.4-10.8)
[2022-04-02 16:02] LABS: INR 2.1 (0.9-1.1); Prothrombin Time 20.5 sec (9.3-11.0)
[2022-04-02 16:16] LABS: Iron 73 ug/dL (65-175); Total Iron Binding Capacity 311 ug/dL (250-450); Transferrin Sat 23 % (20-55)
[2022-04-02 16:44] LABS: ALT 16 U/L (16-63); AST 25 U/L (15-37); Albumin 3.5 g/dL (3.4-5.0); Alkaline Phosphatase 82 U/L (46-116); Anion Gap 9.1 mmol/L (3-11); BUN 23 mg/dL (7-18); Bilirubin, Total 0.6 mg/dL (0.2-1.0); CO2 25.9 mmol/L (21.0-32.0); CREATININE 1.1 mg/dL (0.70-1.30); Calcium 8.9 mg/dL (8.5-10.1); Chloride 105 mmol/L (98-107); Estimated GFR 67.44 (mL/min/1.73m2); Ferritin 141 ng/mL (26-388); Folate > 20.0 ng/mL (8.6-20.0); Glucose 118 mg/dL (74-106); Potassium 4.6 mmol/L (3.5-5.1); Sodium 140 mmol/L (136-145); Total Protein 8.2 g/dL (6.4-8.2); Vitamin B12 460 pg/mL (193-986)
== END 2022-04-02 13:47 | disposition home or self-care (01) ==
LOC: LBN 13:46
PROVIDERS: PCP Internal Medicine; Visit Provider Surgery
DX: E78.5 Hyperlipidemia, unspecified (principal); I25.10 Atherosclerotic heart disease of native coronary artery without angina pectoris; I42.9 Cardiomyopathy, unspecified; I48.91 Unspecified atrial fibrillation; I72.8 Aneurysm of other specified arteries; I77.9 Disorder of arteries and arterioles, unspecified; K57.92 Diverticulitis of intestine, part unspecified, without perforation or abscess without bleeding; K63.5 Polyp of colon; L71.9 Rosacea, unspecified; M10.9 Gout, unspecified
CPT/HCPCS: 80053; 82607; 82728; 82746; 83540; 83550; 85025; 85045; 85610

== ENCOUNTER 2022-04-28 06:15 | Day surgery (SDC) | payer OTHER, SELFPAY ==
--- NOTE | 2022-04-27 20:07 | W.PM.DSUDISC ---
Date of service: 04/28/22 Time of Service: 07:51 Discharge Plan Disposition Patient Disposition: Home Condition: Good Discharge Details Reason For Visit: Colonoscopy Attending Provider: Kolton Nichols Primary Care Provider: Delon Jean Home Meds and New Rx's Prescriptions: Continued multivitamin tablet 1 tab PO DAILY simvastatin 40 mg tablet 40 mg PO QPM metoprolol succinate 100 mg tablet extended release 24 hr 300 mg PO DAILY Qty: 3 clobetasol 0.05 % cream 1 applic topical DAILY PRN metformin 500 MG tablet 1,000 mg PO BID allopurinol 100 MG tablet 200 mg PO DAILY triamcinolone acetonide 0.1 % cream 1 applic topical DAILY metronidazole 0.75 % cream 1 applic topical DAILY MediHoney (honey) 80 % gel 1 applic topical DAILY gabapentin 300 mg capsule 300 mg PO BID warfarin [Coumadin] 1 mg tablet 8 mg PO DAILY Patient Comments: 06/12/18 Per Pt 5mg M/W/F, 6mg T/TH/S/S. PG 04/02/22 per pt 8 mg daily BMR lisinopril 10 mg tablet 10 mg PO DAILY celecoxib [Celebrex] 100 mg Capsule 100 mg PO BID loratadine 10 MG tablet 10 mg PO DAILY aspirin 81 mg Tablet 81 mg PO DAILY Discontinued polyethylene glycol 3350 17 gram/dose powder 238 g PO ONCE Qty: 238 0RF Rx Instructions: take per colonoscopy instructions bisacodyl [Dulcolax (bisacodyl)] 5 mg tablet,delayed release (DR/EC) 5 mg PO ONCE Qty: 4 0RF Rx Instructions: take per colonoscopy instructions Discharge Instructions Instructions: Diverticulosis (GEN), Diverticulosis Diet (GEN) Additional Instructions: Mauro, we were able to complete your colonoscopy today without any difficulty. Your prep was excellent. I did not see any signs of polyps or cancers. You do have fairly extensive diverticulosis. We have provided some information here regarding daily management of colonic diverticulosis. As we talked about before the procedure, based on your age, you do not require any more screening colonoscopies. Certainly, if you develop any kinds of problems that may suggest problems with your large intestine like bleeding or pain, you would be eligible to have the procedure done again. You just do not need it scheduled routinely. 1. If tolerated, consume a soft, low fiber diet for 1-2 days. 2[address] Do not drive, drink alcohol, operate machinery, make critical decisions, or do activities that require coordination or balance for 24 hours. 3. Because air was put into your colon during the procedure, expelling air from your rectum (passing gas or farting) is normal. 4. You may not have a bowel movement for 1-3 days because of the colonoscopy prep. This is normal. 5. Go directly to the emergency room if you notice any of the following: Develop chills (warm to touch), or if you have a thermometer and your temperature is above 101 Difficulty breathing or difficultly swallowing Persistent vomiting Severe abdominal pain, other than gas cramps Severe chest pain Black, tarry stools Any bleeding ? exceeding one tablespoon 6. Call your physician if the site where your intravenous was started becomes red, swollen, painful, and warm to touch. 7. Your physician has reviewed your pre-procedure medications. Please continue to take those medications as previously ordered. You will be given specific information/education regarding any changes to your medications before leaving. Activity:: Activity as Tolerated Diet:: As Tolerated Discharge Orders Discharge Orders: Discharge Order (Routine); Ordered 04/27/22 Ordered By: Kolton Nichols DS: Diagnosis Discharge Diagnosis (1) Screening for colon cancer: Status: Acute Asessment and Plan: Negative for polyps or cancers, frequent diverticulosis
--- NOTE | 2022-04-27 20:10 | W.COLOREPORT ---
Date of service: 04/28/22 Time of Service: 07:54 Colonoscopy Report Date of procedure: 04/28/22 Pre-op diagnosis general: Screening colonoscopy Post-op diagnosis procedure note: other (Diverticulosis) Procedure: Colonoscopy Surgeon: Kolton Nichols Anesthesia Type: General:No Airway Estimated blood loss (mL): 0 Pathology: none sent Complications: None Disposition: same day Indications: Mauro is an 81-year-old male who is following up on another screening colonoscopy Prep: Miralax/Dulcolax Procedure Start Time: 07:27 Procedure End Time: 07:44 Retraction Time: 11 Findings: Diverticulosis Procedure Description: After the induction of monitored anesthetic care, and with the patient in left lateral decubitus position, I began by performing an external anorectal exam.? Perineum and skin were normal, as was the anal verge.? There was no not evidence of external hemorrhoids.? Next, I performed a digital rectal exam.? I did appreciate any abnormal findings.? Next, I advanced a colonoscope into the rectal vault.? I performed retroflexion.? This appeared normal.? Using insufflation, I then advanced the colonoscope beyond the rectal folds and into the sigmoid colon before advancing towards the cecum.? There was extensive sigmoid diverticulosis extending from approximately 20 cm above the anal verge to about 40 cm the quality of the prep was adequate.? The scope was noted to be in the cecum by identification of the ileocecal valve and appendiceal orifice.? I then began withdrawing the colonoscope using repeated irrigation as necessary for full evaluation of the colonic mucosa. ?Once the scope was withdrawn to the level of the rectum, great care was taken to examine portions of the rectal folds.? Finally, the scope was withdrawn and the patient was brought to the same-day surgery recovery unit as the anesthetic wore off. ?The findings and instructions were shared with the patient prior to discharge.
[2022-04-28 06:21] VITALS: BP 156/73; PULSE 85; RESP 16; TEMP 37.2; O2SAT 100
[2022-04-28] MEDS: Lactated Ringers 1,000 ML 80 ML IV (06:55)
--- NOTE | 2022-04-28 06:58 | ANES.PREOP_ITS ---
General Info Date of Service Date Performed: 04/28/22 Height: 6 ft 2 in Weight: 90.5 kg Body Mass Index (BMI): 25.6 Surgical Procedure: Operation Date: 04/28/22 07:35 Proposed Procedure Side Surgeon p Colonoscopy possible Polypectomy Kolton Nichols MD Meds Allergies and Home Medications Allergies Allergy/AdvReac Type Severity Reaction Status Date / Time No Known Allergies Allergy Verified 04/28/22 06:42 Home Medication Medication Instructions Recorded allopurinol 100 mg tablet 200 mg PO DAILY 08/14/12 metformin 500 mg tablet 1,000 mg PO BID 08/14/12 loratadine 10 mg tablet 10 mg PO DAILY 03/01/17 multivitamin 1 tab PO DAILY 01/31/18 simvastatin 40 mg tablet 40 mg PO QPM 01/31/18 metoprolol succinate 100 mg 300 mg PO DAILY #3 tab-caps 04/11/18 tablet,extended release 24 hr celecoxib 100 mg capsule (Celebrex) 100 mg PO BID 10/27/18 gabapentin 300 mg capsule 300 mg PO BID 11/03/21 honey 80 % topical gel (MediHoney 1 applic topical DAILY 11/03/21 (honey)) metronidazole 0.75 % topical cream 1 applic topical DAILY 11/03/21 triamcinolone acetonide 0.1 % 1 applic topical DAILY 11/03/21 topical cream Coumadin 1 mg tablet (warfarin) 8 mg PO DAILY 04/02/22 clobetasol 0.05 % topical cream 1 applic topical DAILY PRN 04/02/22 lisinopril 10 mg tablet 10 mg PO DAILY 04/02/22 aspirin 81 mg tablet 81 mg PO DAILY 04/28/22 Current Visit Medications: Current Medications Generic Name Dose Route Start Last Admin Trade Name Freq PRN Reason Stop Dose Admin Hyoscyamine Sulfate 0.125 mg 04/27/22 20:11 Hyoscyamine 0.125 Mg Sl/Oral/Chew SL PRN PRN Ringer's Solution 1,000 mls @ 80 mls/hr 04/28/22 06:00 IV 05/27/22 23:59 [facility] IV Miscellaneous Supplies 1 each 04/28/22 06:00 Iv Access IV 05/27/22 23:59 DIRECTED TARYN Ondansetron HCl 4 mg 04/27/22 20:11 Ondansetron 4 Mg/2 Ml Vial IVP Q4H PRN PRN Nausea / Vomiting Sodium Chloride 0 ml 04/28/22 06:00 Normal Saline Flush 10 Ml Syr IV 05/27/22 23:59 PRN PRN Sodium Chloride 0 ml 04/28/22 06:00 Normal Saline 10 Ml Vial IJ 05/27/22 23:59 DIRECTED PRN Sterile Water 0 ml 04/28/22 06:00 Water,Injection,Sterile 10 Ml Vial IJ 05/27/22 23:59 DIRECTED PRN PFSH Active Problems Active Problems: Problem Status Onset Code 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 Pancreatic cyst 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 Right shoulder pain M25.511 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 CAD (coronary artery disease) I25.10 Dyslipidemia E78.5 Gout M10.9 Atrial fibrillation I48.91 Foot ulcer L97.509 Carpal tunnel syndrome, right G56.01 Carpal tunnel syndrome, left G56.02 Postnasal drip 06/10/14 R09.82 Dysphonia 06/10/14 R49.0 Screening for colon cancer Z12.11 S/P colonoscopy ~04/10/18 Z98.890 Colorectal polyps ~04/10/18 K63.5 Status post cataract extraction and insertion of intraocular lens of right eye 07/03/18 Z98.41, Z96.1 Status post cataract extraction and insertion of intraocular lens of left eye 06/16/18 Z98.42, Z96.1 Medical History Medical History A-fib Acne rosacea Adenomatous polyp Anticoagulation therapy continued upon discharge Cardiomyopathy Carpal tunnel syndrome on both sides Cataract Repair 06/2018 CHF (congestive heart failure) Colon polyps Cortical cataract of left eye Diabetes Diverticulitis Epistaxis Gout Hyperlipidemia Inguinal hernia Nuclear sclerotic cataract of left eye Paresthesias Perennial allergic rhinitis Peripheral neuropathy Skin lesion Stasis dermatitis Varicose veins of bilateral lower extremities with other complications Surgical History Surgical History History of cataract surgery History of colonoscopy Hx of arthroscopy of knee Hx of inguinal hernia repair x 4 Tobacco Smoking/Tobacco Use Status: Former Tobacco Use Alcohol Alcohol Intake: current Alcohol intake frequency: 3 or more drinks per day Alcohol type: beer Substance Use Substance use: Never Substance use type: does not use Vital Signs and Lab Results Vital Signs Most Recent Vital Signs in EMR: Most Recent Vital Signs Temp Pulse Resp BP Pulse Ox 37.2 C 85 16 156/73 H 100 04/28/22 06:21 04/28/22 06:21 04/28/22 06:21 04/28/22 06:21 04/28/22 06:21 Point of Care Results Point of Care Results: Finger Stick Blood Glucose 123 04/28/22 06:30 Lab Results Blood Type / Crossmatch: No Data to Display Complete Blood Count: White Blood Count 6.17 10^3/uL (4.4-10.8) 04/02/22 13:48 Red Blood Count 3.04 10^6/uL (4.36-5.78) L 04/02/22 13:48 Hemoglobin 10.1 g/dL (13.5-17.5) L 04/02/22 13:48 Hematocrit 30.1 % (40.0-50.0) L 04/02/22 13:48 Platelet Count 170 10^3/uL (130-400) 04/02/22 13:48 Complete Metabolic Panel: Sodium 140 mmol/L (136-145) 04/02/22 13:48 Potassium 4.6 mmol/L (3.5-5.1) 04/02/22 13:48 Chloride 105 mmol/L (98-107) 04/02/22 13:48 Carbon Dioxide 25.9 mmol/L (21.0-32.0) 04/02/22 13:48 BUN 23 mg/dL (7-18) H 04/02/22 13:48 Creatinine 1.1 mg/dL (0.70-1.30) 04/02/22 13:48 Est GFR (CKD-EPI 2020) 67.44 (mL/min/1.73m2) 04/02/22 13:48 Calcium 8.9 mg/dL (8.5-10.1) 04/02/22 13:48 Albumin 3.5 g/dL (3.4-5.0) 04/02/22 13:48 Glucose 118 mg/dL (74-106) H 04/02/22 13:48 Liver Function Panel: Alanine Aminotransferase (ALT/SGPT) 16 U/L (16-63) 04/02/22 13: 48 Aspartate Amino Transf (AST/SGOT) 25 U/L (15-37) 04/02/22 13:48 Coagulation Panel: INR International Normalized Ratio 2.1 (0.9-1.1) H 04/02/22 13 :48 Prothrombin Time 20.5 sec (9.3-11.0) H 04/02/22 13:48 Cardiac Panel: No Data to Display Arterial Blood Gas: No Data to Display Venous Blood Gas: No Data to Display Pancreas Panel: No Data to Display Thyroid Panel: No Data to Display Infectious Disease: No Data to Display Blood Cultures: No Data to Display Toxicology Panel: No Data to Display Anesthesia Assessment and Plan Anesthesia History Personal History: No History of Anesthesia Complications Family History: No Family History of Anesthesia Complications Exercise Tolerance Exercise Tolerance: Metabolic Equivalents<4 Pertinent Negatives Pertinent Negatives: No Symptoms of GERD Cardiac & Pulmonary Exam Cardiac Exam: Normal S1/S2 Heart Sounds Pulmonary Exam: Clear Bilateral Breath Sounds Implantable Cardiac Device Does patient have a Pacemaker or an ICD?: No Airway Exam Known Difficult Airway: No Mallampati Class: 1 Mouth Opening: Normal (> 3cm) Thyromental Distance: Greater than 3 cm Neck Range of Motion: Full ROM Neck Circumference: Normal Teeth Condition: Edentulous ASA Classification ASA Score: ASA 2 Emergency Case?: No NPO Status NPO Status: NPO Clears >2 hours, Solids >8 hours Anesthesia Plan Resuscitation Status: Full Code Anesthesia Technique: General Anesthesia Airway Planned: Natural Airway Monitors Used: Standard Monitors
[2022-04-28 07:02] VITALS: BMI 25.6
[2022-04-28 07:54] VITALS: PULSE 76; RESP 16; TEMP 36.7; O2SAT 94
--- NOTE | 2022-04-28 08:10 | W.ANESPOSTOP ---
Postoperative Evaluation Date, Time and Location Date Performed: 04/28/22 Time Performed: 08:10 Patient Location: Day Surgery Unit Vital Signs Most Recent Imported Vital Signs: Most Recent Vital Signs Temp Pulse Resp BP Pulse Ox 36.7 C 76 16 156/73 H 94 04/28/22 07:54 04/28/22 07:54 04/28/22 07:54 04/28/22 06:21 04/28/22 07:54 Pain Score Most Recent Pain Score: Most Recent Pain Score Pain Level 0 04/28/22 07:54 Assessment Mental Status: Awake (Alert & Oriented to Patient Baseline) Airway and Respiratory Function: Patent airway with normal (patient baseline) respiratory exam Cardiovascular Function: Hemodynamically Stable Hydration Status: Adequately Hydrated Nausea & Vomiting: No Nausea or Vomiting Pain: Pt. Denies Any Pain Peripheral Nerve Block: Patient did not receive a nerve block
[2022-04-28 08:19] VITALS: BP 129/67; PULSE 73; RESP 16; TEMP 36.6; O2SAT 100
== END 2022-04-28 08:47 | disposition home or self-care (01) ==
PROVIDERS: PCP Internal Medicine; Visit Provider Surgery
PROC: 0DJD8ZZ Inspection of Lower Intestinal Tract, Via Natural or Artificial Opening Endoscopic (ICD-10-PCS; CPT 45378; principal; 2022-04-28 07:30)
DX: Z12.11 Encounter for screening for malignant neoplasm of colon (principal); K57.30 Diverticulosis of large intestine without perforation or abscess without bleeding; Z86.010 Personal history of colon polyps
CPT/HCPCS: G0105

== ENCOUNTER 2022-07-28 01:01 | Outpatient (CLI) | payer OTHER, SELFPAY ==
--- NOTE | 2022-07-28 | DI.MRI_ITS ---
Exam(s) MR ABDOMEN WO/W EXAM: MR ABDOMEN WO/W CLINICAL HISTORY: F/U PANCREATIC CYST, K86.2 TECHNIQUE: Multiplanar multisequence MRI of the Abdomen was performed. CONTRAST MATERIAL: IV Contrast: 19 mL of Dotarem contrast administered. COMPARISON: CT CT ANGIOGRAM AORTA LOWER EXTREMITY RUNOFF from 10/31/2018 MR MR ABDOMEN WO/W from 02/21/2020 FINDINGS: Lung bases: Dilated right ventricle. Trace bilateral pleural effusions. Liver: Unremarkable. Pancreas: No change in size or appearance of the 9 millimeter cystic lesion in the proximal pancreati c body. No enhancement visible. There are a few other tiny cystic areas seen in the tail of the pretty creas. Gallbladder and Bile Ducts: Unremarkable. Adrenals: Unremarkable. Kidneys: Unremarkable. Spleen: Unremarkable. Aorta: Unremarkable. Soft Tissues: Unremarkable. Bone: Unremarkable. Lymph Nodes: Unremarkable. Bowel: Small diverticulum of the descending duodenum. No abnormal gastric, small bowel or colonic di stention. No visible wall thickening. IMPRESSION: Stable at 9 millimeter lesion in the body of the pancreas. DATA REPOSITORY:
[2022-07-28] MEDS: Normal Saline - Diluent 50 ML VIAL 25 ML IJ (10:51)
[2022-07-28] MEDS: Gadoterate meglumine 20 ML VIAL 19 ML IVP (10:52)
== END 2022-07-28 01:21 ==
LOC: DI 01:11
PROVIDERS: PCP Internal Medicine; Visit Provider Family Medicine
DX: K86.2 Cyst of pancreas (principal)
CPT/HCPCS: 74183

== ENCOUNTER 2022-11-17 16:38 | Outpatient (REF) | payer OTHER, SELFPAY ==
[2022-11-17 16:48] LABS: HCT 29.9 % (40.0-50.0); HGB 9.7 g/dL (13.5-17.5); MCH 32.8 pg (27.0-33.0); MCHC 32.4 % (32.0-36.0); MCV 101 fL (80-95); MPV 9.4 fL (8.0-11.0); Platelet Count 208 10^3/uL (130-400); RBC 2.96 10^6/uL (4.36-5.78); RDW 14.9 % (11.8-14.1); RDW-SD 55.2 fL; WBC 4.65 10^3/uL (4.4-10.8)
[2022-11-17 16:59] LABS: INR 2.4 (0.9-1.1); Prothrombin Time 23.9 sec (9.3-11.0)
[2022-11-17 17:03] LABS: Anion Gap 5.6 mmol/L (3-11); BUN 22 mg/dL (7-18); CO2 28.4 mmol/L (21.0-32.0); CREATININE 1.1 mg/dL (0.70-1.30); Calcium 9.3 mg/dL (8.5-10.1); Chloride 106 mmol/L (98-107); Estimated GFR 67.44 (mL/min/1.73m2); Glucose 76 mg/dL (74-106); Potassium 4.5 mmol/L (3.5-5.1); Sodium 140 mmol/L (136-145); Uric Acid 4.9 mg/dL (3.5-7.2)
== END 2022-11-17 16:39 | disposition home or self-care (01) ==
LOC: NCHCN 16:38
PROVIDERS: PCP Internal Medicine; Visit Provider Family Medicine
DX: E11.40 Type 2 diabetes mellitus with diabetic neuropathy, unspecified (principal); I48.91 Unspecified atrial fibrillation; M10.9 Gout, unspecified; R79.89 Other specified abnormal findings of blood chemistry; Z79.01 Long term (current) use of anticoagulants
CPT/HCPCS: 80048; 85027; 84550; 85610

== ENCOUNTER 2023-03-01 18:19 | Outpatient (REF) | payer OTHER, SELFPAY | END 2023-03-01 18:20 | disposition home or self-care (01) | LOC: LBN 18:19 | PROVIDERS: PCP Internal Medicine; Visit Provider Nurse Practitioner Family | DX: L98.8 Other specified disorders of the skin and subcutaneous tissue (principal) | CPT/HCPCS: 87077; 87070; 87186; 87205 ==

== ENCOUNTER → 2023-03-01 18:24 | Outpatient (CLI) | payer OTHER, SELFPAY ==
--- NOTE | 2023-03-01 18:15 | DI.RAD_ITS ---
Exam(s) XR TOE RT THIRD EXAM: XR TOE RT THIRD CLINICAL HISTORY: eval for osteomyelitis. TECHNIQUE: 2D digital imaging was performed. COMPARISON: CR XR foot RT complete from 10/27/2018 FINDINGS: Four views. 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 The appetite a pavon edge appear sharp with no evidence of osteomyelitis and there is no gas in the soft tissues. There is a bandage over the adjacent 3rd toe and the distal aspect of the 3rd toe exhibits soft tissu e swelling. There is a small radiopaque density measuring less than 1 mm but this appears to be in t he bandage material and not toe itself. There is normal mineralization of the bones of the phalanges of the 3rd toe. No evidence of obvious osteomyelitis at this time. IMPRESSION: As above. No obvious radiographic evidence of osteomyelitis. Recommend repeat radiographs in 1 week . DATA REPOSITORY: RADIATION DOSE DELIVERED:
--- NOTE | 2023-03-01 19:10 | DI.VRAD_ITS ---
PROCEDURE INFORMATION: Exam: XR Right Toe(s) Exam date and time: 03/01/2023 6:42 PM Age: 82 years old Clinical indication: Other: Eval for osteomyelitis TECHNIQUE: Imaging protocol: Radiologic exam of the right toes. Views: Minimum 2 views. 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 Remaining osseous structures appear intact. No frankly destructive osseous changes or periostitis. No acute fracture. Soft tissues: Significant soft tissue swelling of the 3rd toe. IMPRESSION: Significant soft tissue swelling of the 3rd toe compatible with soft tissue infection. No evidence of osteomyelitis. Dictated and Authenticated by: Rajat Horan MD. Ordering:JESSICA Rincon MD
== END ==
PROVIDERS: PCP Internal Medicine; Visit Provider Nurse Practitioner Family
DX: L03.031 Cellulitis of right toe (principal)
CPT/HCPCS: 73660

== ENCOUNTER 2023-03-04 13:29 | Outpatient (CLI) | payer OTHER, SELFPAY ==
[2023-03-04 13:33] LABS: INR 1.7 (0.9-1.1); Prothrombin Time 16.1 sec (9.1-11.1)
== END 2023-03-04 13:30 | disposition home or self-care (01) ==
LOC: LBO 13:29
PROVIDERS: PCP Internal Medicine; Visit Provider Family Medicine
DX: I48.91 Unspecified atrial fibrillation (principal)
CPT/HCPCS: 36415; 85610

== ENCOUNTER 2023-05-18 14:04 | Outpatient (REF) | payer OTHER, SELFPAY ==
[2023-05-18 15:25] LABS: Hemoglobin A1C 5.9 % (<5.7)
== END 2023-05-18 14:05 | disposition home or self-care (01) ==
LOC: NCHCN 14:04
PROVIDERS: PCP Internal Medicine; Visit Provider Family Medicine
DX: E11.9 Type 2 diabetes mellitus without complications (principal)
CPT/HCPCS: 83036

== ENCOUNTER 2023-11-22 19:39 | Outpatient (REF) | payer OTHER, SELFPAY ==
[2023-11-22 16:57] LABS: Abs Immature Grans 0.01 10^3/uL (0.0-0.06); Absolute Basophil Count 0.05 10^3/uL (0.0-0.2); Absolute Eosinophil Count 0.39 10^3/uL (0.0-0.7); Absolute Lymphocyte Count 1.06 10^3/uL (1.2-3.4); Absolute Monocyte Count 0.66 10^3/uL (0.1-0.8); Absolute Neutrophil Count 2.47 10^3/uL (1.2-6.7); Basophils % 1.1 %; Eosinophils % 8.4 %; HCT 31.1 % (40.0-50.0); HGB 10.4 g/dL (13.5-17.5); Immature Grans % 0.2 %; Lymphocytes % 22.8 %; MCH 35.3 pg (27.0-33.0); MCHC 33.4 % (32.0-36.0); MCV 105 fL (80-95); MPV 9.9 fL (8.0-11.0); Monocytes % 14.2 %; Neutrophils % 53.3 %; Platelet Count 169 10^3/uL (130-400); RBC 2.95 10^6/uL (4.36-5.78); RDW-SD 54.4 fL; WBC 4.64 10^3/uL (4.4-10.8)
[2023-11-22 17:07] LABS: ALT 26 U/L (16-63); AST 29 U/L (15-37); Albumin 3.6 g/dL (3.4-5.0); Alkaline Phosphatase 73 U/L (46-116); Anion Gap 7.7 mmol/L (3-11); BUN 19 mg/dL (7-18); Bilirubin, Total 0.83 mg/dL (0.2-1.0); CO2 27.3 mmol/L (21.0-32.0); Chloride 104 mmol/L (98-107); Estimated GFR 75.14 (mL/min/1.73m2); Glucose 127 mg/dL (74-106); Potassium 4.3 mmol/L (3.5-5.1); Sodium 139 mmol/L (136-145); Total Protein 7.4 g/dL (6.4-8.2)
[2023-11-22 17:15] LABS: Diff Comment RBC Morph Reviewed; Macrocytosis 1+
== END 2023-11-22 19:40 | disposition home or self-care (01) ==
LOC: NCHCN 19:39
PROVIDERS: PCP Internal Medicine; Visit Provider Family Medicine
DX: I10 Essential (primary) hypertension (principal); M10.9 Gout, unspecified
CPT/HCPCS: 80053; 84550; 85025

== ENCOUNTER 2024-04-16 15:47 | Outpatient (REF) | payer OTHER, SELFPAY ==
[2024-04-16 16:54] LABS: COMMENT (LAB VIEW ONLY) 128.03 mg/dL; Microalb ug/mg Crea 49.5 ug/mg Cr
== END 2024-04-16 15:48 | disposition home or self-care (01) ==
LOC: NCHCN 15:47
PROVIDERS: PCP Internal Medicine; Visit Provider Family Medicine
DX: E11.8 Type 2 diabetes mellitus with unspecified complications (principal)
CPT/HCPCS: 82043; 82570

== ENCOUNTER 2024-06-01 16:31 | Outpatient (CLI) | payer OTHER, SELFPAY ==
[2024-06-01 14:14] LABS: Abs Immature Grans 0.02 10^3/uL (0.0-0.06); Absolute Basophil Count 0.04 10^3/uL (0.0-0.2); Absolute Eosinophil Count 0.13 10^3/uL (0.0-0.7); Absolute Lymphocyte Count 1.18 10^3/uL (1.2-3.4); Absolute Monocyte Count 0.75 10^3/uL (0.1-0.8); Absolute Neutrophil Count 3.88 10^3/uL (1.2-6.7); Basophils % 0.7 %; Eosinophils % 2.2 %; HCT 34.1 % (40.0-50.0); HGB 11.2 g/dL (13.5-17.5); Immature Grans % 0.3 %; Lymphocytes % 19.7 %; MCH 34.8 pg (27.0-33.0); MCHC 32.8 % (32.0-36.0); MCV 106 fL (80-95); MPV 8.8 fL (8.0-11.0); Monocytes % 12.5 %; Neutrophils % 64.6 %; Platelet Count 154 10^3/uL (130-400); RBC 3.22 10^6/uL (4.36-5.78); RDW 13.8 % (11.8-14.1); RDW-SD 54.1 fL
[2024-06-01 14:18] LABS: ESR 12 mm/hr (0-20)
[2024-06-01 14:52] LABS: ALT 46 U/L (16-63); AST 128 U/L (15-37); Alkaline Phosphatase 155 U/L (46-116); Anion Gap 3.6 mmol/L (3-11); BUN 20 mg/dL (7-18); Bilirubin, Total 1.5 mg/dL (0.2-1.0); C-Reactive Protein < 0.50 mg/dL (<or=0.5); CO2 30.4 mmol/L (21.0-32.0); CREATININE 1.2 mg/dL (0.70-1.30); Calcium 9.1 mg/dL (8.5-10.1); Chloride 102 mmol/L (98-107); Glucose 207 mg/dL (74-106); Macrocytosis 1+; Potassium 4.5 mmol/L (3.5-5.1); Sodium 136 mmol/L (136-145); Total Protein 8.1 g/dL (6.4-8.2)
== END 2024-06-01 16:32 | disposition home or self-care (01) ==
LOC: LBO 16:31
PROVIDERS: PCP Internal Medicine; Visit Provider Podiatrist Foot & Ankle Surgery
DX: E11.621 Type 2 diabetes mellitus with foot ulcer (principal); L97.522 Non-pressure chronic ulcer of other part of left foot with fat layer exposed
CPT/HCPCS: 36415; 80053; 85652; 85025; 86140

== ENCOUNTER 2024-06-25 15:06 | Outpatient (REF) | payer OTHER, SELFPAY ==
[2024-06-25 14:40] LABS: HCT 34.3 % (40.0-50.0); HGB 11.1 g/dL (13.5-17.5); MCH 34.5 pg (27.0-33.0); MCHC 32.4 % (32.0-36.0); MCV 107 fL (80-95); MPV 9.7 fL (8.0-11.0); Platelet Count 187 10^3/uL (130-400); RBC 3.22 10^6/uL (4.36-5.78); RDW 13.4 % (11.8-14.1); RDW-SD 52.9 fL
[2024-06-25 15:04] LABS: ALT 18 U/L (16-63); AST 29 U/L (15-37); Albumin 3.1 g/dL (3.4-5.0); Alkaline Phosphatase 128 U/L (46-116); Anion Gap 4.5 mmol/L (3-11); BUN 19 mg/dL (7-18); Bilirubin, Total 0.6 mg/dL (0.2-1.0); CO2 30.5 mmol/L (21.0-32.0); CREATININE 1.3 mg/dL (0.70-1.30); Calcium 8.8 mg/dL (8.5-10.1); Chloride 103 mmol/L (98-107); Estimated GFR 54.51 (mL/min/1.73m2); Glucose 132 mg/dL (74-106); Potassium 4.7 mmol/L (3.5-5.1); Sodium 138 mmol/L (136-145); Total Protein 7.6 g/dL (6.4-8.2)
== END 2024-06-25 15:07 | disposition home or self-care (01) ==
LOC: NCHCN 15:06
PROVIDERS: PCP Internal Medicine; Visit Provider Family Medicine
DX: Z01.818 Encounter for other preprocedural examination (principal)
CPT/HCPCS: 80053; 85027

== ENCOUNTER 2024-07-26 16:11 | Outpatient (CLI) | payer OTHER, SELFPAY ==
[2024-07-26 16:09] LABS: Abs Immature Grans 0.01 10^3/uL (0.0-0.06); Absolute Basophil Count 0.08 10^3/uL (0.0-0.2); Absolute Eosinophil Count 0.38 10^3/uL (0.0-0.7); Absolute Lymphocyte Count 1.22 10^3/uL (1.2-3.4); Absolute Monocyte Count 0.85 10^3/uL (0.1-0.8); Absolute Neutrophil Count 3.04 10^3/uL (1.2-6.7); Basophils % 1.4 %; Eosinophils % 6.8 %; HCT 32.5 % (40.0-50.0); HGB 11.1 g/dL (13.5-17.5); Immature Grans % 0.2 %; Lymphocytes % 21.9 %; MCH 35.1 pg (27.0-33.0); MCHC 34.2 % (32.0-36.0); MCV 103 fL (80-95); MPV 8.7 fL (8.0-11.0); Monocytes % 15.2 %; Neutrophils % 54.5 %; Platelet Count 203 10^3/uL (130-400); RBC 3.16 10^6/uL (4.36-5.78); RDW 13.1 % (11.8-14.1); RDW-SD 49.7 fL; WBC 5.58 10^3/uL (4.4-10.8)
[2024-07-26 16:12] LABS: ESR 28 mm/hr (0-20)
[2024-07-26 16:25] LABS: ALT 23 U/L (16-63); AST 39 U/L (15-37); Albumin 3.1 g/dL (3.4-5.0); Alkaline Phosphatase 153 U/L (46-116); Anion Gap 5.3 mmol/L (3-11); BUN 18 mg/dL (7-18); Bilirubin, Total 0.5 mg/dL (0.2-1.0); C-Reactive Protein < 0.50 mg/dL (<or=0.5); CO2 26.7 mmol/L (21.0-32.0); CREATININE 1.1 mg/dL (0.70-1.30); Calcium 9.1 mg/dL (8.5-10.1); Chloride 104 mmol/L (98-107); Estimated GFR 66.61 (mL/min/1.73m2); Glucose 98 mg/dL (74-106); Sodium 136 mmol/L (136-145); Total Protein 8.1 g/dL (6.4-8.2)
== END 2024-07-26 16:12 | disposition home or self-care (01) ==
LOC: LBO 16:12
PROVIDERS: PCP Internal Medicine; Visit Provider Podiatrist Foot & Ankle Surgery
DX: I83.229 Varicose veins of left lower extremity with both ulcer of unspecified site and inflammation (principal); L97.929 Non-pressure chronic ulcer of unspecified part of left lower leg with unspecified severity; S98.132A Complete traumatic amputation of one left lesser toe, initial encounter
CPT/HCPCS: 36415; 80053; 85652; 85025; 86140